=== PATIENT | male | born 1960 | race Caucasian/White ===

== ENCOUNTER 2020-07-04 15:20 | Outpatient (REF) | payer BC, SELFPAY ==
[2020-07-04 14:06] LABS: Abs Immature Grans 0.01 10^3/uL (0.0-0.06); Absolute Basophil Count 0.04 10^3/uL (0.0-0.2); Absolute Eosinophil Count 0.41 10^3/uL (0.0-0.7); Absolute Lymphocyte Count 1.52 10^3/uL (1.2-3.4); Absolute Monocyte Count 0.59 10^3/uL (0.1-0.8); Absolute Neutrophil Count 2.87 10^3/uL (1.2-6.7); Basophils % 0.7; Eosinophils % 7.5; HCT 46.1 % (40.0-50.0); HGB 15.8 g/dL (13.5-17.5); Immature Grans % 0.2; Lymphocytes % 27.9; MCH 32.8 pg (27.0-33.0); MCHC 34.3 % (32.0-36.0); MCV 95.6 fL (80-95); MPV 10.8 fL (8.0-11.0); Monocytes % 10.8; Neutrophils % 52.9; Nucleated RBC 0 %; Platelet Count 266 10^3/uL (130-400); RBC 4.82 10^6/uL (4.36-5.78); RDW-SD 42.3 fL; WBC 5.44 10^3/uL (4.4-10.8)
[2020-07-04 14:30] LABS: ALT 103 U/L (16-63); AST 49 U/L (15-37); Albumin 4.2 g/dL (3.4-5.0); Alkaline Phosphatase 75 U/L (46-116); Anion Gap 11.3 mmol/L (3-11); BUN 15 mg/dL (7-18); Bilirubin, Total 0.6 mg/dL (0.2-1.0); CO2 25.7 mmol/L (21.0-32.0); Calcium 9.6 mg/dL (8.5-10.1); Calculated LDL 81 mg/dL (<100); Chloride 102 mmol/L (98-107); Cholesterol 163 mg/dL (<200); Glucose 89 mg/dL (74-106); HDL Cholesterol 69 mg/dL (40-60); Potassium 4.5 mmol/L (3.5-5.1); Sodium 139 mmol/L (136-145); Triglyceride 65 mg/dL (<150)
[2020-07-05 10:46] LABS: Hepatitis A Antibody IgM Negative (Negative); Hepatitis B Core Antibody Positive (Negative); Hepatitis B surface Ag Negative (Negative); Hepatitis C Ab w Rflx HCV PCR Reactive (Negative)
[2020-07-08 12:33] LABS: HBc IgM Ab, S Negative (Negative)
[2020-07-08 13:57] LABS: HCV RNA Qualitative Detected (Undetected)
== END 2020-07-04 15:21 | disposition home or self-care (01) ==
LOC: NCHCN 15:20
PROVIDERS: Visit Provider Nurse Practitioner Family
DX: B19.20 Unspecified viral hepatitis C without hepatic coma (principal); R20.2 Paresthesia of skin; F17.210 Nicotine dependence, cigarettes, uncomplicated; B00.89 Other herpesviral infection; Z86.59 Personal history of other mental and behavioral disorders; Z13.220 Encounter for screening for lipoid disorders
CPT/HCPCS: 80053; 80061; 86704; 86709; 86803; 87340; 87522; 85025; 86705

== ENCOUNTER 2021-01-06 12:11 | Outpatient (REF) | payer BC, SELFPAY ==
[2021-01-06 21:23] LABS: HCT 45.3 % (40.0-50.0); HGB 15.1 g/dL (13.5-17.5); MCH 32.2 pg (27.0-33.0); MCHC 33.3 % (32.0-36.0); MCV 96.6 fL (80-95); MPV 10.5 fL (8.0-11.0); Platelet Count 260 10^3/uL (130-400); RBC 4.69 10^6/uL (4.36-5.78); RDW 12.2 % (11.8-14.1); RDW-SD 43.8 fL; WBC 5.09 10^3/uL (4.4-10.8)
[2021-01-06 21:34] LABS: ALT 25 U/L (16-63); AST 16 U/L (15-37); Albumin 4.2 g/dL (3.4-5.0); Alkaline Phosphatase 95 U/L (46-116); Anion Gap 8.1 mmol/L (3-11); BUN 18 mg/dL (7-18); Bilirubin, Total 0.5 mg/dL (0.2-1.0); CO2 29.9 mmol/L (21.0-32.0); Calcium 9.5 mg/dL (8.5-10.1); Chloride 102 mmol/L (98-107); Glucose 152 mg/dL (74-106); Potassium 4.9 mmol/L (3.5-5.1); Sodium 140 mmol/L (136-145); Total Protein 7.8 g/dL (6.4-8.2)
[2021-01-07 01:57] LABS: COVID-19 RT-PCR UVMMC Result Negative (Negative)
[2021-01-08 09:55] LABS: Hepatitis B Surface Ag Negative (Negative)
[2021-01-08 14:00] LABS: HCV RNA Qualitative Undetected (Undetected)
== END 2021-01-06 12:12 | disposition home or self-care (01) ==
LOC: NCHCN 12:11
PROVIDERS: PCP Nurse Practitioner Family; Visit Provider Nurse Practitioner Family
DX: Z20.822 Contact with and (suspected) exposure to COVID-19 (principal); B19.20 Unspecified viral hepatitis C without hepatic coma
CPT/HCPCS: 80053; 85027; 87340; 87522; U0003

== ENCOUNTER 2021-03-03 09:47 | Outpatient (REF) | payer BC, SELFPAY ==
[2021-03-03 16:46] LABS: ALT 26 U/L (16-63); AST 19 U/L (15-37); Albumin 4.4 g/dL (3.4-5.0); Alkaline Phosphatase 83 U/L (46-116); Anion Gap 9.8 mmol/L (3-11); BUN 18 mg/dL (7-18); Bilirubin, Total 0.6 mg/dL (0.2-1.0); CO2 30.2 mmol/L (21.0-32.0); CREATININE 1.1 mg/dL (0.70-1.30); Calcium 9.6 mg/dL (8.5-10.1); Chloride 101 mmol/L (98-107); Glucose 79 mg/dL (74-106); Sodium 141 mmol/L (136-145); Total Protein 8.1 g/dL (6.4-8.2)
[2021-03-05 15:36] LABS: Hepatitis B Surface Ag Negative (Negative)
== END 2021-03-03 09:48 | disposition home or self-care (01) ==
LOC: NCHCN 09:47
PROVIDERS: PCP Nurse Practitioner Family; Visit Provider Family Medicine
DX: B19.20 Unspecified viral hepatitis C without hepatic coma (principal); M75.81 Other shoulder lesions, right shoulder
CPT/HCPCS: 80053; 87340

== ENCOUNTER 2021-03-05 02:47 | Outpatient (CLI) | payer BC, SELFPAY ==
[2021-03-05 10:10] LABS: Source Nasal/Nares
[2021-03-05 16:46] LABS: COVID-19 PCR Negative (Negative)
== END 2021-03-05 02:48 | disposition home or self-care (01) ==
LOC: LBO 02:47
PROVIDERS: PCP Nurse Practitioner Family; Visit Provider Surgery
DX: Z20.822 Contact with and (suspected) exposure to COVID-19 (principal); Z01.818 Encounter for other preprocedural examination
CPT/HCPCS: 87635

== ENCOUNTER 2021-03-07 06:12 | Day surgery (SDC) | payer BC, SELFPAY ==
--- NOTE | 2021-03-06 22:58 | PDOC.DSDIS_ITS ---
Discharge Plan Disposition Patient Disposition: HOME Condition: Good Discharge Details Reason For Visit: colon scope Attending Provider: Nena Akhtar Primary Care Provider: Vicky Diaz Home Meds and New Rx's Prescriptions: Continued valacyclovir 1 gram tablet 1,000 mg PO BID RF: 0 Discontinued polyethylene glycol 3350 17 gram/dose powder 238 g PO ONCE Qty: 238 RF: 0 bisacodyl [Dulcolax (bisacodyl)] 5 mg tablet,delayed release (DR/EC) 5 mg PO ONCE Qty: 4 RF: 0 Discharge Instructions Additional Instructions: DSU Colonoscopy Post- Op Instructions Instructions for Everyone who is given Anesthesia: For your safety, please do the following for the next twenty-four (24) hours: *Do Not operate a motor vehicle (car, truck, motorcycle, etc.) *Do Not drink alcoholic beverages or use any recreational drugs for the first 24 hours or while taking pain medications. The medications in your body may have a reaction that can be dangerous. *Do Not make any important decisions or sign any important papers. Findings: ext hemorhoids diverticula Follow up: repeat CE in 10 yrs time 1. No lifting over 20 pounds or strenuous activity for the first 24 hours after your procedure. After 24 hours there are no restrictions on your activity but you may feel fatigued for a few days. 2. After you arrive home you may have a light meal and return to your normal diet as you can tolerate it without feeling sick to your stomach. 3. You may have a bloated, gaseous feeling in your belly (abdomen) after a colonoscopy. Passing gas and belching will help. Walking or lying down on your left side with your knees flexed may relieve the discomfort. Call the office at [phone] (Office) or [phone] (Hospital) right away if you notice any of the following: a.Vomiting of blood or ?coffee ground stools?. b.Rectal bleeding 1Tbsp, blood clots or continuous bleeding. c.Severe belly (abdominal) pain. d.A hard distended belly (abdomen) and an inability to pass gas. 4. Please don?t expect to have a normal BM (bowel movement) for 2-3 days after your procedure. 5. If there are questions regarding the findings of your procedure, please contact your doctor 6. If you are unable to contact your doctor with a problem, contact the [facility] at [phone]. 7. Continue all your regular medications unless directed otherwise. I understand the above instructions and have no questions. Signature of Patient or Adult Escort Name of Responsible Adult Escort Signature of Nurse Date/Time Activity:: see above Diet:: see above Discharge Orders Discharge Orders: Discharge Order (Routine); Ordered 03/06/21 Ordered By: Nena Akhtar DS: Diagnosis Discharge Diagnosis (1) History of smoking: Status: Acute (2) Family history of polyps in the colon: Status: Acute (3) Diverticula of colon: Status: Acute (4) External hemorrhoid: Status: Acute
--- NOTE | 2021-03-06 22:59 | COLE_ITS ---
Colonoscopy Report Date of procedure: 03/07/21 Pre-op diagnosis general: famly hx of polyps Surgeon: Nena Akhtar Anesthesia Type: General:No Airway Disposition: same day Prep: Miralax/Dulcolax Procedure Description: After informed consent was obtained the patient was taken to the procedure room and placed in a left decubitous position. Monitors were applied and a time out was done. The patients name, date of , procedure, allergies to medications and metal in their body was reviewed. The patient was then sedated. Once sedated and comfortable a rectal exam was done. Mildly infla med external hemorrhoids internal exam revealed a normal sphincter tone and no palpable masses. The prostate: No masses detected today The scope was then introduced and retrofelexed. no internal hemorrhoids were identified. The scope was then advanced to the cecum without difficulty. The TI and appendiceal orifice were identified. The prep was adequate. The scope was then slowly retracted over 7 minutes back into the rectum. he has a few small scattered diverticula throughout the entire colon. No signs of bleeding or infection. No polyps were identified today. The mucosa appears pink and healthy. Polyps were removed none The scope was removed and the patient was woken up and taken back to Same day surgery in stable condition. The patient tolerated the procedure well and there were no immediate complications. Follow up: The patient should follow up in 5 Years unless they develop changes in bowel habits or other new gastrointestinal complaints.
--- NOTE | 2021-03-07 06:08 | W.ANESPRE ---
General Info Date of Service Date Performed: 03/07/21 Height: 5 ft 11 in Weight: 95.708 kg Body Mass Index (BMI): 29.4 Surgical Procedure: Operation Date: 03/07/21 07:35 Proposed Procedures Side Surgeon p Colonoscopy Nena Akhtar DO Meds Allergies and Home Medications Allergies Allergy/AdvReac Type Severity Reaction Status Date / Time No Known Allergies Allergy Verified 03/07/21 06:32 Home Medication Medication Instructions Recorded valacyclovir 1 gram tablet 1,000 mg PO BID 02/26/21 Current Visit Medications: Current Medications Generic Name Dose Route Start Last Admin Trade Name Freq PRN Reason Stop Dose Admin Hyoscyamine Sulfate 0.125 mg 03/06/21 22:57 Hyoscyamine 0.125 Mg Sl/Oral/Chew SL DIRECTED PRN Ringer's Solution 1,000 mls @ 80 mls/hr 03/07/21 06:00 IV 03/25/21 23:59 INFUSION CARMINA IV Miscellaneous Supplies 1 each 03/07/21 06:00 Iv Access IV 03/25/21 23:59 DIRECTED CARMINA Sodium Chloride 0 ml 03/07/21 06:00 Normal Saline Flush 10 Ml Syr IV 03/25/21 23:59 PRN PRN Sodium Chloride 0 ml 03/07/21 06:00 Normal Saline 10 Ml Vial IJ 03/25/21 23:59 DIRECTED PRN Sterile Water 0 ml 03/07/21 06:00 Water,Injection,Sterile 10 Ml Vial IJ 03/25/21 23:59 DIRECTED PRN PFSH Active Problems Active Problems: Problem Status Onset Code History of substance abuse F19.11 History of smoking Z87.891 Family history of polyps in the colon Z83.71 Medical History Medical History (Updated 03/06/21 @ 23:00 by Nena Akhtar DO) Current every day smoker Genital herpes Hepatitis C Pt. stated he has been recieving treatment for it History of substance abuse heroin, cocaine per pt. states 25-30 years ago Inguinal hernia left Oral herpes simplex, not currently active Paresthesia of foot SCC (squamous cell carcinoma) Surgical History Surgical History (Updated 03/07/21 @ 06:32 by Lissett Torres RN) History of wisdom tooth extraction Hx of hand surgery L into wrist tendon repair Tobacco Smoking/Tobacco Use Status: Never Alcohol Alcohol Intake: current Alcohol intake frequency: a few times a month Substance Use Substance use: Current Sobriety Substance use type: former substance user Vital Signs and Lab Results Vital Signs Most Recent Vital Signs in EMR: Temp Pulse Resp BP Pulse Ox 36.1 C L 69 16 116/83 98 03/07/21 06:19 03/07/21 06:19 03/07/21 06:19 03/07/21 06:19 03/07/21 06:19 Lab Results Blood Type / Crossmatch: No Data to Display Complete Blood Count: No Data to Display Complete Metabolic Panel: Sodium Level 141 mmol/L (136-145) 03/03/21 08:35 03/03/21 Potassium Level 5.0 mmol/L (3.5-5.1) 03/03/21 08:35 03/03/21 Chloride Level 101 mmol/L (98-107) 03/03/21 08:35 03/03/21 Carbon Dioxide Level 30.2 mmol/L (21.0-32.0) 03/03/21 08:35 03/03/21 Blood Urea Nitrogen 18 mg/dL (7-18) 03/03/21 08:35 03/03/21 Creatinine 1.1 mg/dL (0.70-1.30) 03/03/21 08:35 03/03/21 Estimated GFR/1.73 m2 >= 60.00 (mL/min/1.73m2) 03/03/21 08:35 03/03/21 Calcium Level 9.6 mg/dL (8.5-10.1) 03/03/21 08:35 03/03/21 Albumin 4.4 g/dL (3.4-5.0) 03/03/21 08:35 03/03/21 Glucose Level 79 mg/dL (74-106) 03/03/21 08:35 03/03/21 Liver Function Panel: Alanine Aminotransferase (ALT/SGPT) 26 U/L (16-63) 03/03/21 08:35 03/03/21 Aspartate Amino Transf (AST/SGOT) 19 U/L (15-37) 03/03/21 08:35 03/03/21 Coagulation Panel: No Data to Display Cardiac Panel: No Data to Display Arterial Blood Gas: No Data to Display Venous Blood Gas: No Data to Display Pancreas Panel: No Data to Display Thyroid Panel: No Data to Display Infectious Disease: Coronavirus (COVID-19)(PCR) Negative (Negative) 03/05/21 09:36 03/05/21 Coronavirus 2019 Source Nasal/Nares 03/05/21 09:36 03/05/21 Hepatitis B Surface Antigen Negative (Negative) 03/03/21 08:35 03/03/21 Blood Cultures: No Data to Display Toxicology Panel: No Data to Display Anesthesia Assessment and Plan Anesthesia History Personal History: No History of Anesthesia Complications Family History: No Family History of Anesthesia Complications Exercise Tolerance Exercise Tolerance: Metabolic Equivalents>4 Cardiac & Pulmonary Exam Cardiac Exam: Normal S1/S2 Heart Sounds Pulmonary Exam: Clear Bilateral Breath Sounds Implantable Cardiac Device Does patient have a Pacemaker or an ICD?: No Airway Exam Known Difficult Airway: No Mallampati Class: 2 Mouth Opening: Normal (> 3cm) Thyromental Distance: Less than 3 cm Neck Range of Motion: Full ROM Neck Circumference: Normal Teeth Condition: Normal Dentition ASA Classification ASA Score: ASA 2 Emergency Case?: No NPO Status NPO Status: NPO Clears >2 hours, Solids >8 hours Anesthesia Plan Resuscitation Status: Full Code Anesthesia Technique: General Anesthesia Airway Planned: Natural Airway Monitors Used: Standard Monitors Preoperative Comments:: 60 yo male with family history of polyps here for colonoscopy. Sig PMHx: former substance abuse, hep c (has completed treatment), former smoker.
[2021-03-07 06:19] VITALS: BP 116/83; PULSE 69; RESP 16; TEMP 36.1; O2SAT 98
[2021-03-07] MEDS: Lactated Ringers 1,000 ML 80 ML IV (06:58)
[2021-03-07 07:17] VITALS: BMI 29.4
[2021-03-07 07:59] VITALS: BP 116/96; PULSE 63; RESP 16; TEMP 36.9; O2SAT 97
[2021-03-07 08:23] VITALS: BP 120/81; PULSE 58; RESP 15; TEMP 36.5; O2SAT 98
--- NOTE | 2021-03-07 08:44 | W.ANESPOSTOP ---
Postoperative Evaluation Date, Time and Location Date Performed: 03/07/21 Time Performed: 08:44 Patient Location: Day Surgery Unit Vital Signs Most Recent Imported Vital Signs: Most Recent Vital Signs Temp Pulse Resp BP Pulse Ox 36.5 C 58 L 15 120/81 98 03/07/21 08:23 03/07/21 08:23 03/07/21 08:23 03/07/21 08:23 03/07/21 08:23 Pain Score Most Recent Pain Score: Most Recent Pain Score Pain Level 0 03/07/21 08:23 Assessment Mental Status: Awake (Alert & Oriented to Patient Baseline) Airway and Respiratory Function: Patent airway with normal (patient baseline) respiratory exam Cardiovascular Function: Hemodynamically Stable Hydration Status: Adequately Hydrated Nausea & Vomiting: No Nausea or Vomiting Pain: Pt. Denies Any Pain Peripheral Nerve Block: Patient did not receive a nerve block
== END 2021-03-07 09:15 | disposition home or self-care (01) ==
PROVIDERS: PCP Nurse Practitioner Family; Visit Provider Surgery
PROC: 0DJD8ZZ Inspection of Lower Intestinal Tract, Via Natural or Artificial Opening Endoscopic (ICD-10-PCS; CPT 45378; principal; 2021-03-07 07:30)
DX: Z12.11 Encounter for screening for malignant neoplasm of colon (principal); Z83.71 Family history of colonic polyps
CPT/HCPCS: 45378

== ENCOUNTER 2021-06-19 01:08 | Outpatient (CLI) | payer BC, SELFPAY ==
--- NOTE | 2021-06-19 07:45 | DI.MRI_ITS ---
Exam(s) MR UPPER JOINT RT WO EXAM: MR UPPER JOINT RT WO CLINICAL HISTORY: TENDINITIS OF RT SHOULDER, M75.81 TECHNIQUE: Multiplanar multisequence MRI of the shoulder was performed. COMPARISON: No plain films of the shoulder available time this MRI interpretation. FINDINGS: MARROW:There is no evidence of fracture, Hill-Sachs deformity, nor ominous osseous lesions. ROTATOR CUFF MECHANISM: AC JOINT/ACROMIUM: Moderate degenerative changes in the AC joint. Degenerative cyst noted on the cla vicular side of the joint. Increased signal within the joint space. No prominent downgoing osteophy reymundo. No impingement hook on the undersurface of the acromion.. There is no evidence of os acromiale. Supraspinatus: There is a full-thickness tear of the supraspinatus tendon., leaving a prominent gap m easuring 1.5 cm AP. Infraspinatus: Appears intact. No atrophy. Teres Minor: Intact. No evidence of tear nor muscle atrophy. Subscapularis/anterior cuff: Exhibits tendinitis signal just anterior to the lesser tuberosity. Degroot thuy, no high-grade tear. BICEPS TENDON: Exhibits normal position within the intertubercular groove. No tear nor prominent tenosynovitis LABRUM: No evidence of abnormal SLAP-type signal in the superior labrum posterior to the biceps inser tion site. Also no evidence of tear in the posterior labrum and inferior labrum. However, there is tearing in the anterior labrum evident. No paralabral cyst. There is no evidence of bony Bankart lesion. No periosteal stripping evident. The inferior glenohum eral ligament appears intact. GLENOHUMERAL JOINT: There is a moderate joint effusion which is in continuity with the subacromial sp en through the full-thickness tear in the supraspinatus. There are no obvious loose intra-articular bodies. There are no degenerative subarticular cysts in the osseous glenoid. There few small degen erative subarticular cysts evident in the posterolateral aspect of the humeral head. There are no os teophytes. No prominent cartilage loss/chondral defects. QUADRILATERAL SPACE: No evidence of mass in the region of the axillary nerve and dorsal circumflex hu meral vessels. Visualized triceps muscle at this level appears unremarkable. IMPRESSION: 1. There is a full-thickness tear of the rotator cuff-supraspinatus tendon, as described above. Ther e is a moderate-sized joint effusion with fluid continuity through the full-thickness tear into the s ubacromial space. No prominent atrophy. 2. There is tear of the anterior labrum. No evidence of SLAP-type superior labral tear. No evidence of biceps tendon tear nor displacement. 3. Moderate degenerative changes in the AC joint. Minimal degenerative changes in the glenohumeral joint. No osteophytes. DATA REPOSITORY:
== END 2021-06-19 01:28 ==
PROVIDERS: PCP Nurse Practitioner Family; Visit Provider Nurse Practitioner Family
DX: M25.511 Pain in right shoulder (principal); M75.81 Other shoulder lesions, right shoulder; M75.101 Unspecified rotator cuff tear or rupture of right shoulder, not specified as traumatic; M25.411 Effusion, right shoulder; M19.011 Primary osteoarthritis, right shoulder; S43.431A Superior glenoid labrum lesion of right shoulder, initial encounter
CPT/HCPCS: 73221

== ENCOUNTER 2021-08-19 09:27 | Outpatient (CLI) | payer BC, SELFPAY ==
--- NOTE | 2021-08-19 08:15 | DI.RAD_ITS ---
Exam(s) XR SHOULDER RT COMPLETE 2+V EXAM: XR SHOULDER RT COMPLETE 2+V CLINICAL HISTORY: right shoulder pain. TECHNIQUE: 2D digital imaging was performed of the right shoulder. Two images were obtained. AP an d axillary views were obtained. COMPARISON: No exams were available for comparison FINDINGS: BONES: No acute fracture is present. No bony destructive lesion is seen. JOINTS: No dislocation present. Mild degenerative changes are seen at the acromioclavicular joint. SOFT TISSUE: Normal. IMPRESSION: Mild degenerative changes of the AC joint. DATA REPOSITORY: RADIATION DOSE DELIVERED:
== END 2021-08-19 09:28 | disposition home or self-care (01) ==
LOC: DIORS 09:27
PROVIDERS: PCP Nurse Practitioner Family; Referring Provider Nurse Practitioner Family; Visit Provider Student in an Organized Health Care Education/Training Program
DX: M25.511 Pain in right shoulder (principal); M19.011 Primary osteoarthritis, right shoulder
CPT/HCPCS: 73030

== ENCOUNTER 2023-03-11 11:38 | Outpatient (REF) | payer BC, SELFPAY ==
[2023-03-11 14:35] LABS: ALT 24 U/L (16-63); AST 21 U/L (15-37); Albumin 4.3 g/dL (3.4-5.0); Alkaline Phosphatase 65 U/L (46-116); Anion Gap 8.1 mmol/L (3-11); BUN 16 mg/dL (7-18); Bilirubin, Total 0.6 mg/dL (0.2-1.0); CO2 27.9 mmol/L (21.0-32.0); CREATININE 1.1 mg/dL (0.70-1.30); Calcium 9.7 mg/dL (8.5-10.1); Chloride 103 mmol/L (98-107); Estimated GFR 74.96 (mL/min/1.73m2); Glucose 86 mg/dL (74-106); Potassium 4.8 mmol/L (3.5-5.1); Sodium 139 mmol/L (136-145); Total Protein 7.7 g/dL (6.4-8.2)
[2023-03-15 12:16] LABS: HCV RNA Qualitative Undetected (Undetected)
== END 2023-03-11 11:39 | disposition home or self-care (01) ==
LOC: NCHCN 11:38
PROVIDERS: PCP Nurse Practitioner Family; Visit Provider Family Medicine
DX: Z86.19 Personal history of other infectious and parasitic diseases (principal)
CPT/HCPCS: 80053; 87522

== ENCOUNTER 2024-01-20 16:12 | Outpatient (REF) | payer BC, SELFPAY ==
[2024-01-20 15:36] LABS: Abs Immature Grans 0.02 10^3/uL (0.0-0.06); Absolute Basophil Count 0.04 10^3/uL (0.0-0.2); Absolute Eosinophil Count 0.19 10^3/uL (0.0-0.7); Absolute Monocyte Count 0.51 10^3/uL (0.1-0.8); Absolute Neutrophil Count 2.11 10^3/uL (1.2-6.7); Basophils % 0.9 %; Eosinophils % 4.3 %; HCT 42.5 % (40.0-50.0); HGB 14.5 g/dL (13.5-17.5); Immature Grans % 0.4 %; Lymphocytes % 35.8 %; MCHC 34.1 % (32.0-36.0); MCV 97 fL (80-95); MPV 10.6 fL (8.0-11.0); Monocytes % 11.4 %; Neutrophils % 47.2 %; Platelet Count 284 10^3/uL (130-400); RDW 12.2 % (11.8-14.1); RDW-SD 43.5 fL; WBC 4.47 10^3/uL (4.4-10.8)
--- OUTSIDE RECORDS SUMMARY | 2024-01-20 16:19 | XMS_ITS | Encounter Summary ---
[place] [address] Care Team Providers Care Picking Crew Supervisor Name Role Phone Vicky Diaz APRN Primary Care Provider [phone] Reason for Visit * Consultation (Routine) - Closed Specialty Diagnoses / Procedures Referred By Jun sanabria Referred To Contact Gastroenterology Diagnoses Hepatitis C Liver- Hep C Vicky Diaz APRN [address] [place] [address] [facility] [place] [address] [address] Referral ID Status Reason Start Date Expiration Date V isits Requested Visits Authorized [id number] Closed Consult, Test & Treat Connection Center PCP Updated and/or Approved 07/04/2020 07/04/2021 6 6 Encounter Details Date Type Department Care Team (Late st Contact Info) Description 10/01/2020 2:00 PM EDT Office [place] [phone] Ag Wilson PA [address] [place] [address] [place] [address] Chronic hepatitis C without hepatic coma (Primary Dx); Hepatitis B core antibody positive Social History Tobacco Use Types Packs/Day Years Used Date Smoking Tobacco: Every Day Smokeless Tobacco: Never Comments:3-4 a day Sex and Gender Information Value Date Recorded Sex Assigned at Not on file Gender Identity Not on file Sexual Orientation Not on file documented as of this encounter Last Filed Vital Signs Vital Sign Reading Time Taken Comments Blood Pressure 119/73 10/01/2020 1:56 PM EDT Pulse 65 10/01/2020 1:56 PM EDT Temperature - - Respiratory Rate - - Oxygen Saturation - - Inhaled Oxygen Concentration - - Weight 92.2 kg (203 lb 4.8 oz) 10/01/2020 1:56 P M EDT Height 182.9 cm (6') 10/01/2020 1:56 PM EDT Body Mass Index 27.57 10/01/2020 1:56 PM EDT documented in this encounter Progress Notes * Corrine Alvares LNA - 10/01/2020 2:00 PM EDT * Ag Wilson PA - 10/01/2020 2:00 PM EDT Images from the original note were not included. HEPATOLOGY NEW PATIENT CONSULTATION Patient: Markus Gentile Sex: male Date of : 1960 FELLED SEAM OPERATOR: Ag Wilson PA-C PCP: Vicky Diaz APRN Requesting Provider: Vicky Diaz 10/01/20 REASON FOR CONSULTATION: Hepatitis C PROBLEM LIST Patient Active Problem List Diagnosis Code ??? History of skin cancer Z85.828 ??? Left inguinal hernia K40.90 ??? Cigarette smoker F17.210 ??? History of substance abuse F19.11 ??? Chronic hepatitis C without hepatic coma B18.2 ??? Oral herpes simplex infection B00.2 HISTORY OF PRESENT ILLNESS Markus Gentile is a 60 y.o. male referred to hepatology clinic for evaluation of hepatitis C. He states that he first learned of his infection about 20 years ago when he had a life insurance policy physical examination with blood work and was told that he was declined because of his hep C infection, which he had no knowledge of at the time. This was confirmed with 3 testing through his primary care office at that time. He then met with a GI doctor who said it would be in his best interestnot to be treated and to wait. He believes he is completely asymptomatic and has not ever had any concerning symptoms that he thinks would be related to his infection. He believes he very likely acquired his infection through intravenous drug abuse in the past, when he was using cocaine and heroin in his 20s. He has not used illicit drugs in more than 10 years. He gets random drug tests periodically through his work and so he generally avoids all drugs now. He does admit however that he drinks alcohol regularly when he is not working. He works 6 weeks straight in [place] and then returns home to [place] for 6 weeks. For the 6 weeks in [place], he does notdrink at all, though when he is home he states that he often will have a couple of beers on hot days and 1 to 2 glasses of wine with dinner most days. Sometimes he drinks heavier than this socially or on weekends. He does admit that he certainly drank heavier when he was younger as well. He has never had any problems with withdrawals or DTs. He has been hung over in the past however and he has had a few overnights in longterm because of his alcohol use in the past. REVIEW OF SYSTEMS General: Denies weight loss, fatigue, poor sleep, fever, chills, night sweats Skin: Denies new rashes, easy bruising, jaundice EENT: Denies blurred vision or change in vision, hearing loss, sinus problems, dry eyes or mouth Endocrine: Denies change in tolerance to heat or cold, excessive thirst Cardiovascular: Denies chest pain, palpitations or irregular heart beat, pain in legs with walking,swelling in feet Pulmonary: Denies SOB, persistent cough, coughing up blood, asthma or wheezing Gastrointestinal: Denies poor appetite, abdominal pain, indigestion, trouble swallowing, diarrhea, constipation, nausea/vomitting, rectal bleeding or blood in stools Musculoskeletal: Denies pain in joints, back pain, neck or shoulder pain, muscle cramping, movementof legs at night Neurologic: Denies blackouts or loss of consciousness, headache, weakness or numbness in legs or arms, tremor, worsening memory and concentration Genitourinary: Denies frequent urination, blood in urine Psychiatric: Denies changes in mood or behavior, anxiety MEDICATIONS Current Outpatient Medications Medication Sig Dispense Refill ??? valACYclovir (Valtrex) 500 mg Tablet Take 500 mg by mouth as needed. ??? zolpidem (Ambien) 5 mg Tablet Take 5 mg by mouth as needed. ??? multivitamin (THERAGRAN) Tablet Take 1 tablet by mouth daily. No current facility-administered medications for this visit. ALLERGIES No Known Allergies SOCIAL HISTORY Occupation: Works on [employer] in [place]; former professional fisherman Marital status: , previously Smokin-4 cigarettes daily Alcohol: See HPI Other drug: None Hepatitis C Risk Factors: IV drugs? Yes, used cocaine/heroin in early 20s, 3-4 years total, last used age 23 Intranasal drugs? Yes, cocaine, last used 10+ years ago Tattoos? None service? None Blood transfusions? None Close contact/relationship with known hepatitis? None FAMILY HISTORY Negative except as noted below Medical problem Family member Medical Problem Family member Medical Problem Family member Alcohol drug Problem Kidney disease Mental illness Anemia or Blood Disease Liver disease Depression Diabetes Liver cancer Seizure High blood pressure Stroke Lung disease ?sister Heart disease Clotting problems Colon Cancer High cholesterol Immune disorders Other Cancer PHYSICAL EXAM Vitals: 10/01/20 1356 BP: 119/73 BP Location ([facility]): Left arm Patient Position: Sitting BP Cuff Sizes: Large Adult (32-43 cm) Pulse: 65 Weight: 92.2 kg (203 lb 4.8 oz) Height: 182.9 cm (6') Body mass index is 27.57 kg/m??. Constitutional: Well appearing, appropriate, no acute distress Skin: No cyanosis, no palmar erythema, no jaundice, no spider angiomata Head: Normocephalic, sclerae anicteric CVS: Not assessed Lungs: Not assessed Abdomen: Nontender, nondistended, no hepatosplenomegaly, no masses, no fluid wave, no umbilical hernia, no caput medussae Neurologic: Alert and oriented x 3, no asterixis or tremor Extremities: No edema, no clubbing, no muscle wasting, no joint swelling RESULTS Recent Results (from the past 24 hour(s)) Hemogram Result Value Ref Range WBC 5.6 4.0 - 9.5 x10(3)/mcL RBC 4.61 4.58 - 5.54 x10(6)/mcL Hemoglobin 15.0 13.7 - 16.5 gm/dL Hematocrit 44.0 40.5 - 48.5 % MCV 95.4 (H) 82.9 - 93.1 fL MCH 32.5 (H) 27.5 - 32.1 pg MCHC 34.1 32.0 - 35.7 gm/dL Platelets 215 145 - 357 x10(3)/mcL RDWSD 42.5 36.0 - 45.0 fL RDWCV 12.1 11.4 - 13.8 % MPV 10.1 7.6 - 12.9 fL nRBC % Auto 0.0 % nRBC Abs Auto 0.000 0.000 - 0.000 x10(3)/mcL Differential, Automated Result Value Ref Range Neutrophils % 50.4 % Neutr Abs (ANC) 2.82 1 - 6 x10(3)/mcL Lymphocytes % 35.6 % Lymphocytes Abs 2.0 0.9 - 3.2 x10(3)/mcL Monocytes % 7.5 % Monocyte Abs 0.4 0.3 - 0.9 x10(3)/mcL Eosinophils % 5.4 % Eosinophils Abs 0.3 0.0 - 0.4 x10(3)/mcL Basophils % 0.9 % Basophils Abs 0.0 0.0 - 0.1 x10(3)/mcL Immature Gran % 0.20 % Zuleima Gran Abs 0.01 0.00 - 0.04 x10(3)/mcL Non-DH Laboratory: 07/04/20 @ [facility]: Imaging: Ultrasound 07/19/20 @ [facility]: Fibroscan Results Today: Median kPa: 5.9 Mean IQR: 10% (goal is <30 %) Number of valid measurements: 10 (10 required) Number of invalid measurements: 0 Predicted fibrosis stage: F0-F1 CAP (dB/m): 191 ASSESSMENT/PLAN Markus Gentile is a 60 y.o. male with presumed chronic hepatitis C infection, unknown genotype, viral load of 347,752 IU/mL this past June. He was first diagnosed approximately 20 years ago and has not had any obvious risks or exposures in more than 10 years since being clean from illicit drug use, so it is presumed that he has chronic infection. Risk factors for viral acquisition include intravenous and intranasal drug abuse many years ago. He also has a reported history of heavier alcoholuse in the past, and does regularly drink when he has not at work in [place]. Fortunately, recent abdominal ultrasound was entirely negative and FibroScan today is very reassuring suggesting no signifi cant fibrosis or steatosis. He shows no concerning signs or symptoms of advanced chronic liver disease on exam or history. His labs from June show moderately elevated transaminases but otherwise normal liver function. I think that given his stability and lack of symptoms, now is the most appropriate time to treat him. He seems very much interested and invested in treating now. This patient is a candidate to begin direct-acting antiviral therapy now. We would like to treat the patient's chronic infection in order to prevent progression of any preexisting liver damage, and decrease risk of developing other chronic diseases such as diabetes,. We discussed the importance of a bstinence from all drug and alcohol use, especially during treatment, as well as adherence to treatment regimen, once approved, with regular lab work, phone calls with nursing staff, and follow-up appointments post-treatment. We will need some updated pretreatment labs today including HIV screen and additional hepatitis A and B titers. He had a positive HBV core antibody which is likely related to prior exposure. Because of this, he will need HBV surface antigen testing during treatment because of the rare risk of reactivation while on direct acting antiviral therapy. Treatment allocation and laboratory testing may be tricky to coordinate given his work schedule, though if we fill through the Specialty Pharmacy I am confident in our ability to make this work for him. Plan: -Await remaining lab results. -When all results return, submit prior authorization for antiviral therapy. Given that he is na??veto treatment, noncirrhotic, and asymptomatic, we will likely treat him with a simplified treatment algorithm with Mavyret for duration of 8 weeks. -He will need laboratory testing at 4 weeks, end of treatment, and 12 weeks posttreatment includingCMP and HBsAg. -Counseled on drug and alcohol avoidance especially during treatment. -If treatment course is uneventful, he misses no doses, and no side effects, he may not need additional hepatology follow-up if a sustained virologic response is achieved. Time spent reviewing records prior to this encounter: 7 minutes Time spent during encounter with patient including counselin minutes Time spent documenting encounter on date of service: 16 minutes Approximate total time devoted to this single encounter on date of service: 78 minutes This is exclusive of the time spent performing the Fibroscan procedure. Ag Wilson PA-C Section of Gastroenterology [place] [address] Copy: Vicky McleanellJOLENE Vicky H Joe documented in this encounter Procedure Notes * Ag Wilson PA - 10/01/2020 2:00 PM EDTAssociated Order(s): FIBROSCAN Procedure(s): FIBROSCAN Pre-Procedure Diagnose(s): Chronic hepatitis C without hepatic coma [facility] Liver Fibrosis Assessment Report Indication: Hepatitis C Performed by: FRANK Granados Procedure: Vibration Controlled Transient Elastography (VCTE) or Fibroscan [place] Protocol: Patient's identity, procedure and site were verified, confirmatory pause performed. Discussed procedure including risks and potential complications. Questions answered. Patient verbalizes understanding and wishes to proceed with Fibroscan assessment. Patient was placed in the supine position with right arm in maximum abduction to allow optimal exposure of right lateral abdomen. Patient was briefly assessed. Testing was performed in the mid-axillary location. 50Hz Shear Wave pulses were applied and the resulting Shear Wave and Propagation Speed was detected with a 3.5MHz ultrasonic signal, using the Fibroscan probe. Skin to liver capsule distance and liver parenchyma were accessed during the entire examination with the Fibroscan probe. Patient was instructed to breathe normally and abstain from sudden movements during the procedure. At least ten Sheer Waves were produced; individual measurements of each Shear Wave were calculated. Patient tolerated the procedure well with no complications. Fibroscan Results: Median kPa: 5.9 Mean IQR: 10% (goal is <30 %) Number of valid measurements: 10 (10 required) Number of invalid measurements: 0 Predicted fibrosis stage: F0-F1 CAP (dB/m): 191 Estimated steatosis grade: 0-1/3 % hepatocytes affected: < 33% Interpretation: Based on this Fibroscan result, history, clinical examination and review of laboratory and radiological data, this patient likely has stage 0-1 liver fibrosis and grade 0-1 steatosis affecting less than 33% of hepatocytes. documented in this encounter Plan of Treatment Upcoming Encounters Date Type Department Care Team (Late st Contact Info) Description 03/09/2024 10:00 AM EST Office Visit Dermatology at [place] [address] [place] [address] Dom Beebe MD [address], [place] [address] documented as of this encounter Goals Goal Patient Goal Type Associated Problems Recent Progress Patient-Stated? Author DH Home Medication Compliance and Understanding Patient Facing Action Plan Mansi Stephen, [facility] Note: To achieve SVR as definied by undetectable plasma HCV RNA at least twelve weeks after end of treatment documented as of this encounter Procedures Procedure Name Priority Date/Time Associated Diagnosis Comments HEMOGRAM Routine 10/01/2020 4:09 PM EDT Chronic hepatitis C without hepatic coma DIFFERENTIAL, AUTOMATED Routine 10/02/19 4:09 PM EDT Chronic hepatitis C without hepatic coma HC HEPATITIS A, TOTAL Routine 10/01/2020 4:09 PM EDT Chronic hepatitis C without hepatic coma HC HCV GENOTYPING Routine 10/01/2020 4:0 9 PM EDT Chronic hepatitis C without hepatic coma HC HCV QUANTIFICATION Routine 10/01/2020 4:09 PM EDT Chronic hepatitis C without hepatic coma HC HIV SCREEN, 4TH GENERATION Routine 10/01/2020 4:09 PM EDT Chronic hepatitis C without hepatic coma HC HEPATITIS B SURFACE AB Routine 10/01/2020 4:09 PM EDT Chronic hepatitis C without hepatic coma HC CBC,PLT & AUTO DIFF Routine 4:09 PM EDT Chronic hepatitis C without hepatic coma COMPREHENSIVE METABOLIC PANEL Routine 10/01/2020 4:09 PM EDT Chronic hepatitis C without hepatic coma [id number] Routine 10/01/2020 2:00 PM EDT Chronic hepatitis C without hepatic coma documented in this encounter Results * Differential, Automated (10/01/2020 4:09 PM EDT) Pathologist [facility] Neutrophil % 50.4 % [facility] Neutrophil Absolute 2.82 1.70 - 6.10 x10(3)/[facility] Lymph % 35.6 % [facility] Lymphocytes Abs 2.0 0.9 - 3.2 x10(3)/[facility] Monocyte % 7.5 % [facility] Monocyte Abs 0.4 0.3 - 0.9 x10(3)/[facility] Eos % 5.4 % [facility] Eosinophils Abs 0.3 0.0 - 0.4 x10(3)/[facility] Basophil % 0.9 % [facility] Baso Absolute 0.0 0.0 - 0.1 x10(3)/[facility] Immature Gran % 0.20 % [facility] Comment: Immature granulocytes(IG's)percentage and absolute count will include metamyelocytes, myelocytes, and promyelocytes. Blood smears from CBCs yielding IG's will be scanned manually for concordance. If this scan disagrees with the automated IG or if promyelocytes are noted, a manual differential will be performed. Immature Gran Absolute 0.01 0.00 - 0.04 x10(3)/[facility] Blood 10/01/2020 4:09 PM EDT 10/01/2020 4:31 PM EDT Narrative Resulting Agency Comment Spec In Lab Ag MARIE HEMATOLOGY ORDERABLE S [facility] [place] [address] * (ABNORMAL) Hemogram (10/01/2020 4:09 PM EDT) Pathologist [facility] White Blood Cell 5.6 4.0 - 9.5 x10(3)/[facility]ORAT[facility] Red Blood Cell 4.61 4.58 - 5.54 x10(6)/ L [facility] Hemoglobin 15.0 13.7 - 16.5 gm/dL [facility] Hematocrit 44.0 40.5 - 48.5 % [facility] Mean Cell Volume 95.4(H) 82.9 - 93.1 fL [facility] Mean Cell Hemoglobin 32.5(H) 27.5 - 32.1 pg [facility] Mean Cell Hemoglobin Concentration 34.1 32.0 - 35.7 gm/dL [facility] Platelet 215 145 - 357 x10(3)/[facility] LAB[facility]AT[facility] RDW Standard Deviation 42.5 36.0 - 45.0 [facility] RDW coefficient of variation 12.1 11.4 - 13.8 % [facility] Mean Platelet Volume 10.1 7.6 - 12.9 [facility] NRBC% auto 0.0 % [facility] NRBC Absolute 0.000 0.000 - 0.000 x10(3)/[facility] Blood 10/01/2020 4:09 PM EDT 10/01/2020 4:31 PM EDT Narrative Resulting Agency Comment Spec In Lab Ag MARIE HEMATOLOGY ORDERABLE S [facility] [place] [address] * HIV Screen, 4th Generation (MC/CGP/APD/NLH) (10/01/2020 4:09 PM EDT) HIV Ab/Ag Screen Negative Negative [facility] Comment: This 4th Generation HIV test screens for the presence of the HIV-1 p24 antigen as well as antibodies reactive against HIV-1 and HIV-2. A negative screen does not rule out an acute HIV infection. If acute HIV infection is suspected, testing should be repeated in 2 - 3 weeks or HIV nucleic acid testing performed. Blood 10/01/2020 4:09 PM EDT 10/01/2020 4:31 PM EDT Narrative Resulting Agency Comment Spec In Lab Agueda Busch MD CHEMISTRY ORDERABLES Performing Organization Address City/[facility]/ZIP Co de Phone Number [facility] [place] [address] * Hepatitis A Antibody, Total (10/01/2020 4:09 PM EDT) Hepatitis A ANTIBODY, TOTAL Negative Negative [facility] Blood 10/01/2020 4:09 PM EDT 10/01/2020 4:31 PM EDT Narrative Resulting Agency Comment Spec In Lab Agueda Busch MD CHEMISTRY ORDERABLES Performing Organization Address [facility] Co de Phone Number [facility] [place] [address] * Hepatitis B Surface Antibody (10/01/2020 4:09 PM EDT) Hepatitis B Surface Antibody, Quantitative 52.2 IU/L [facility] Comment: HepB Surface Ab Quant: Unvaccinated: < 8.5 IU/L Vaccinated: > 11.5 IU/L Hepatitis B Surface Antibody Positive [facility] Comment: Patient is considered to be immune to HBV infection. Expected Results: Vaccinated: Positive Unvaccinated: Negative Blood 10/01/2020 4:09 PM EDT 10/01/2020 4:31 PM EDT Narrative Resulting Agency Comment Spec In Lab Agueda Busch MD CHEMISTRY ORDERABLES Performing Organization Address City/[facility] Co de Phone Number [facility] [place] [address] * Hepatitis C genotype (10/01/2020 4:09 PM EDT) HCV Genotype Indication for study Hepatitis C Infection Result 1b Interpretation: The genotyping analysis has identified the presence of hepatitis C virus (HCV) genotype 1b in the submitted specimen. Response to some antiviral therapies is genotype dependent. Please refer to current practice guidelines and pharmaceutical product inserts for specific recommendations on treating this particular HCV genotype. Method: The HCV genotyping was carried out using [employer] e[employer]ensor?? HCVg Direct Test. Briefly, nucleic acid isolated from plasma is subjected to a multiplexed reverse transcriptase PCR followed by a direct analysis on the electrochemical [employer]ential[employer] XT-8 detection system for the identification of HCV genotypes. The HCV genotypes/subtypes detected by this method include 1a, 1b, 2a/c, 2b, 3, 4, 5 and 6. Disclaimer: This test was developed and its performance characteristics determined by the [facility] [employer] [facility] [employer] [facility] at [facility]. It has not been cleared or approved by the FDA. The laboratory is regulated under CLIA as qualified to perform high-complexity testing. This test is used for clinical purposes. It should not be regarded as investigational or for research. [facility] Comment: [VERIFIED DATE]10.16.20 Verified By:Lyly Sanchez (Electronic Signature) Corrected on 10/16/20 13:47:41 EDT by Lyly Sanchez. Please contact the lab or refer to previously-reported data. Blood 10/01/2020 4:09 PM EDT 10/02/2020 7:20 AM EDT Narrative Resulting Agency Comment Spec In Lab Agueda Busch MD MOLECULAR ORDERABLES [facility] [place] [address] * Hepatitis C RNA, quantitative, PCR (10/01/2020 4:09 PM EDT) HCV Viral Load 324,162 IU/mL [facility] HCV Viral Load Result: [id number] IU/mL Indication for Study: Hepatitis C Infection Analysis: The [employer] RealTime HCV assay is an in vitro reverse press department manager polymerase chain reaction (RT-PCR)for the quantitation of hepatitis C viral (HCV) RNA in human serum or plasma (EDTA) from HCV-infected individuals. Sample: plasma (0.7 mL minimum volume) Method: [employer] RealTime HCV Assay Linear Range: 12 IU/mL - 100,000,000IU/mL Note: The [employer] RealTime HCV Assay has been approved by the U.S. Food and Drug Administration. [facility] Comment: [VERIFIED DATE]10.03.20 Verified By:Mala Winston (Electronic Signature) Blood 10/01/2020 4:09 PM EDT 10/02/2020 7:20 AM EDT Narrative Resulting Agency Comment Spec In Lab Agueda Busch MD MOLECULAR ORDERABLES [facility] [place] [address] * (ABNORMAL) Comprehensive metabolic panel (non-fasting) (10/01/2020 4:09 PM EDT) Glucose 89 65 - 199 mg/dL [facility] Comment:Diabetes: >=200 mg/d L plus symptoms Blood Urea Nitrogen 14 10 - 20 mg/dL [facility] Creatinine 0.85 0.80 - 1.50 mg/dL [facility] Sodium 140 135 - 145 mmol/L [facility] Potassium 4.1 3.5 - 5.0 mmol/L [facility] Comment: Please note: ??Patients with WBC >100,000 may have falsely elevated Potassium levels. ??For accurate Potassium quantification in these patients send serum separator tube (gold top) for subsequent determinations. ??Contact the Clinical Chemistry Laboratory if there are any questions. Chloride 102 98 - 107 mmol/L [facility] Carbon Dioxide 26 22 - 31 mmol/L [facility] Anion Gap 12 5 - 15 mmol/L [facility] Calcium 9.4 8.5 - 10.5 mg/dL [facility] Protein, Total 7.6 6.1 - 8.0 gm/dL [facility] Albumin 4.6 3.2 - 5.2 gm/dL [facility] [facility] Aspartate Aminotransferase 48(H) 0 - 39 unit/L [facility] Alanine Aminotransferase 62(H) 0 - 55 unit/L [facility] Alkaline Phosphatase 71 40 - 130 unit/L [facility] Bilirubin, Total 0.4 0.2 - 1.3 mg/dL [facility] Est Glomerular Filtration Rate 93 >=60 mL/min/1. 73 m?? [facility] Comment: This patient? s estimated glomerular filtration rate (eGFR) is between 93 mL/min/1.73 m2 (patients with less muscle mass per kg body weight) and 108 mL/min/1.73 m2 (patients with more muscle mass per kg body weight) as determined by the CKD-EPI equation. Assessment of eGFR is not appropriate when creatinine concentrations are rapidly changing. For clinical decisions where creatinine clearance will affect therapy, a 24-hour urine creatinine clearance may be advised. Assignment of CKD stage 1 - 5 for patients with an eGFR near the transition point between stages may be based on clinical assessment of muscle mass and symptoms in addition to eGFR. Blood 10/01/2020 4:09 PM EDT 10/01/2020 4:31 PM EDT Narrative Resulting Agency Comment Spec In Lab Agueda Busch MD CHEMISTRY ORDERABLES [facility] [address] [id number] * [id number] (10/01/2020 2:00 PM EDT) Narrative Ag Wilson PA - 10/01/2020 2:00 PM EDT Ag Wilson PA ? 10/01/2020 ??5:30 PM [facility] Liver Fibrosis Assessment Report Indication: ?? Hepatitis C Performed by: ??FRANK Granados Procedure: Vibration Controlled Transient Elastography (VCTE) or Fibroscan [place] Protocol: Patient's identity, procedure and site were verified, confirmatory pause performed. Discussed procedure including risks and potential complications. Questions answered. Patient verbalizes understanding and wishes to proceed with Fibroscan assessment. Patient was placed in the supine position with right arm in maximum abduction to allow optimal exposure of right lateral abdomen. Patient was briefly assessed. Testing was performed in the mid-axillary location. 50Hz Shear Wave pulses were applied and the resulting Shear Wave and Propagation Speed was detected with a 3.5MHz ultrasonic signal, using the Fibroscan probe. Skin to liver capsule distance and liver parenchyma were accessed during the entire examination with the Fibroscan probe. Patient was instructed to breathe normally and abstain from sudden movements during the procedure. At least ten Sheer Waves were produced; individual measurements of each Shear Wave were calculated. Patient tolerated the procedure well with no complications. Fibroscan Results: Median kPa: 5.9 Mean IQR: 10% (goal is <30 %) Number of valid measurements: 10 (10 required) Number of invalid measurements: 0 Predicted fibrosis stage: F0-F1 CAP (dB/m): 191 Estimated steatosis grade: 0-1/3 % hepatocytes affected: < 33% Interpretation: Based on this Fibroscan result, history, clinical examination and review of laboratory and radiological data, this patient likely has stage 0-1 liver fibrosis and grade 0-1 steatosis affecting less than 33% of hepatocytes. Agueda Busch MD PROCEDURE/MINOR SURG ICAL ORDERABLES documented in this encounter Visit Diagnoses Diagnosis Chronic hepatitis C without hepatic coma- Primary Hepatitis B core antibody positive Other and unspecified nonspecific immunological findings documented in this encounter Care Teams Picking Crew Supervisor Relationship Specialty Start Date End Date Vicky Diaz APRN [address] [place] [address] PCP - General Family Medicine 07/28/20 documented as of this encounter
--- OUTSIDE RECORDS SUMMARY | 2024-01-20 16:19 | XMS_ITS | Encounter Summary ---
[place] [address] Care Team Providers Care Hogshead Press Operator Name Role Phone Vicky Diaz JOLENE Primary Care Provider [phone] Reason for Visit * Reason Onset Date Comments Hepatitis C 10/25/2020 Encounter Details Date Type Department Care Team (Late st Contact Info) Description 10/25/2020 Tele[place] [phone] Maribel Macdonald, RN Hepatitis C Social History Tobacco Use Types Packs/Day Years Used Date Smoking Tobacco: Every Day Smokeless Tobacco: Never Comments:3-4 a day Sex and Gender Information Value Date Recorded Sex Assigned at Not on file Gender Identity Not on file Sexual Orientation Not on file documented as of this encounter Miscellaneous Notes * Telephone Encounter - Maribel Macdonald RN - 10/25/2020 11:04 AM EDT Received vmm from [facility]. Spoke with ricky Akers. Relayed below clinical information and advised regarding patient's 6 week alternating work schedule in [place]. Oswald states he will discuss timing of start date to accommodate required lab work and refills with the patient and will request patient stay in regular contact with our office. GT 2b VL 134,162 IU/mL on 10/01/20 F0-F1 on Fibroscan HBcAb positive - will need to check HBsAg during treatment monthly. HIV neg Tx-naive documented in this encounter Plan of Treatment Upcoming Encounters Date Type Department Care Team (Late st Contact Info) Description 03/09/2024 10:00 AM EST Office Visit Dermatology at [place] [address] [place] [phone] Dom Beebe MD [address], [place] [address] documented as of this encounter Goals Goal Patient Goal Type Associated Problems Recent Progress Patient-Stated? Author DH Home Medication Compliance and Understanding Patient Facing Action Plan Mansi Stephen, [facility] Note: To achieve SVR as definied by undetectable plasma HCV RNA at least twelve weeks after end of treatment documented as of this encounter Visit Diagnoses Not on filedocumented in this encounter Care Teams Hogshead Press Operator Relationship Specialty Start Date End Date Vicky Diaz APRN [address] [place] [address] PCP - General Family Medicine 07/28/20 documented as of this encounter
--- OUTSIDE RECORDS SUMMARY | 2024-01-20 16:19 | XMS_ITS | Encounter Summary ---
Author Organization [facility] [place] [address] Care Team Providers Care Siding Coreboard Inspector Name Role Phone Vicky Diaz APRN Primary Care Provider [phone] Encounter Details Date Type Department Care Team (Late Contact Info) Description 02/06/2021 Telephone [place] [phone] Ag Wilson PA [address] [place] [address] [place] [address] Social History Tobacco Use Types Packs/Day Years Used Date Smoking Tobacco: Every Day Smokeless Tobacco: Never Comments:3-4 a day Sex and Gender Information Value Date Recorded Sex Assigned at Not on file Gender Identity Not on file Sexual Orientation Not on file documented as of this encounter Miscellaneous Notes * Telephone Encounter - Ag Wilson PA - 02/06/2021 9:45 AM EDT LVM to review labs from last month at [facility]. Let him know that all looks good, did not leave details. Will send letter with results. Advised to repeat labs again at end of treatment. DG documented in this encounter Plan of Treatment Upcoming Encounters Date Type Department Care Team (Late Contact Info) Description 03/09/2024 10:00 AM EST Office Visit Dermatology at [address] [address] Dom Beebe MD [address], [place] [address] documented as of this encounter Goals Goal Patient Goal Type Associated Problems Recent Progress Patient-Stated? Author DH Home Medication Compliance and Understanding Patient Facing Action Plan Mansi Stephen, [facility] Note: To achieve SVR as definied by undetectable plasma HCV RNA at least twelve weeks after end of treatment documented as of this encounter Visit Diagnoses Not on filedocumented in this encounter Care Teams Siding Coreboard Inspector Relationship Specialty Start Date End Date Vicky Diaz APRN [address] [place] [address] PCP - General Family Medicine 07/28/20 documented as of this encounter
--- OUTSIDE RECORDS SUMMARY | 2024-01-20 16:19 | XMS_ITS | Encounter Summary ---
Author Organization [place] [address] Care Team Providers Care Experimental Aircraft Mechanic Name Role Phone Vicky Diaz JOLENE Primary Care Provider [phone] Reason for Visit * Reason Comments Annual Exam Encounter Details Date Type Department Care Team (Late st Contact Info) Description 03/08/2023 10:30 AM EST Office Visit Dermatology at [address] [address] Dom Beebe MD [address] [facility], [place] [address] History of SCC (squamous cell carcinoma) of skin; AK (actinic keratosis); Nevus Social History Tobacco Use Types Packs/Day Years Used Date Smoking Tobacco: Every Day Smokeless Tobacco: Never Comments:3-4 a day Sex and Gender Information Value Date Recorded Sex Assigned at Not on file Gender Identity Not on file Sexual Orientation Not on file documented as of this encounter Progress Notes * Dom Beebe MD - 03/08/2023 10:30 AM EST Problem: 1. Annual skin checkup 2. History of SCCA's dorsal forearms treatment 2013 3. History of suspected malignant melanoma left dorsal foot 4. 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 Physical examination reveals a pleasant 62-year-old gentleman who has mild diffuse actinic damage of the temples and forehead and cheeks. 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 There is no evidence of any cutaneous malignancies. Examination of the chest and back the hands arms forearms thighs and calves and the buttocks is otherwise benign. Assessment plan: Mild diffuse actinic damage facial 1. Begin 5-fluorouracil 5% cream apply on a once nightly basis for 1 week on then stop for 3 weeks.Repeat for total of 3 cycles. Dispense 40 g with 0 refills. This will be called into his [facility] in History of SCCA's dorsal forearms 1. No evidence of recurrence 2. Patient reassured about the remainder of his benign skin examination 3. Return to clinic in a year for repeat check. CC: Vicky Diaz APRN documented in this encounter Plan of Treatment Upcoming Encounters Date Type Department Care Team (Late st Contact Info) Description 03/09/2024 10:00 AM EST Office Visit Dermatology at [place] [address] [place] [address] Dom Beebe MD [address], [place] [address] documented as of this encounter Goals Goal Patient Goal Type Associated Problems Recent Progress Patient-Stated? Author DH Home Medication Compliance and Understanding Patient Facing Action Plan Mansi Stephen, [facility] Note: To achieve SVR as definied by undetectable plasma HCV RNA at least twelve weeks after end of treatment documented as of this encounter Visit Diagnoses Diagnosis History of SCC (squamous cell carcinoma) of skin Personal history of other malignant neoplasm of skin AK (actinic keratosis) Actinic keratosis Nevus Benign neoplasm of skin, site unspecified documented in this encounter Care Teams Experimental Aircraft Mechanic Relationship Specialty Start Date End Date Vicky Diaz APRN [address] [place] [address] PCP - General Family Medicine 07/28/20 documented as of this encounter
--- OUTSIDE RECORDS SUMMARY | 2024-01-20 16:19 | XMS_ITS | Encounter Summary ---
Author Organization [facility] [place] [address] Care Team Providers Care Fill Plant Operator Name Role Phone Vicky Diaz JOLENE Primary Care Provider [phone] Encounter Details Date Type Department Care Team (Late st Contact Info) Description 10/14/2020 Refill [place] [address] Ag Wilson PA [address] [place] [address] [place] [address] Social History Tobacco Use Types Packs/Day Years Used Date Smoking Tobacco: Every Day Smokeless Tobacco: Never Comments:3-4 a day Sex and Gender Information Value Date Recorded Sex Assigned at Not on file Gender Identity Not on file Sexual Orientation Not on file documented as of this encounter Plan of Treatment Upcoming Encounters Date Type Department Care Team (Late st Contact Info) Description 03/09/2024 10:00 AM EST Office Visit Dermatology at [place] [address] [place] [address] Dom Beebe MD [address] [facility], [place] [address] documented as of this encounter Goals Goal Patient Goal Type Associated Problems Recent Progress Patient-Stated? Author [facility] Medication Compliance and Understanding Patient Facing Action Plan No Mansi Sapp, [facility] Note: To achieve SVR as definied by undetectable plasma HCV RNA at least twelve weeks after end of treatment documented as of this encounter Visit Diagnoses Not on filedocumented in this encounter Care Teams Fill Plant Operator Relationship Specialty Start Date End Date Vicky Diaz APRN [address] [place] [address] PCP - General Family Medicine 07/28/20 documented as of this encounter
--- OUTSIDE RECORDS SUMMARY | 2024-01-20 16:19 | XMS_ITS | Encounter Summary ---
Author Organization [facility] [place] [address] Care Team Providers Care Microbiology Supervisor Name Role Phone Vicky Diaz JOLENE Primary Care Provider [phone] [phone] Encounter Details Date Type Department Care Team (Late st Contact Info) Description 10/24/2020 Refill [place] [address] Ag Wilson PA [address] [place] [address] [place] [address] Social History Tobacco Use Types Packs/Day Years [...] 10:00 AM EST Office Visit Dermatology at [place] [address] [place] [phone] Dom Beebe MD [address] [facility], [place] [address] documented as of this encounter Goals Goal Patient Goal Type Associated Problems Recent Progress Patient-Stated? Author [facility] Medication Compliance and Understanding Patient Facing Action Plan No Mansi Sapp, [facility] Note: To achieve SVR as definied by undetectable plasma HCV RNA at least twelve weeks after end of treatment documented as of this encounter Visit Diagnoses Not on filedocumented in this encounter Care Teams Microbiology Supervisor Relationship Specialty Start Date End Date Vicky Diaz APRN [address] [place] [address] PCP - General Family Medicine 07/28/20 documented as of this encounter
--- OUTSIDE RECORDS SUMMARY | 2024-01-20 16:19 | XMS_ITS | Encounter Summary ---
Author Organization [facility] [place] [address] Care Team Providers Care Cardiovascular Specialist Name Role Phone JoeMadeleine hewitthrsherin Fortune JOLENE Primary Care Provider [phone] [phone] Reason for Visit * Reason Onset Date Comments Hepatitis C 12/27/2020 Encounter Details Date Type Department Care Team (Late st Contact Info) Description 12/27/2020 Telephone [place] [address] Maribel Macdonald, RN Hepatitis C Social History Tobacco Use Types Packs/Day Years Used Date Smoking Tobacco: Every Day Smokeless Tobacco: Never Comments:3-4 a day Sex and Gender Information Value Date Recorded Sex Assigned at Not on file Gender Identity Not on file Sexual Orientation Not on file documented as of this encounter Miscellaneous Notes * Telephone Encounter - Maribel Macdonald RN - 12/27/2020 10:26 AM EDT Received call from Diamond Vivas with PCP's office at [facility]. Mr. Gentile is temporarily back from [place] and will be finishing week four of his HCV treatment on01/04. He plans to have labs drawn on 01/06. Faxed labs to [facility] per Diamond's request. Also advised it may be quicker to get results if patient has drawn here at (if that's an option). She will discuss with patient. Diamond can be reached at , extension [phone]. documented in this encounter Plan of Treatment Upcoming Encounters Date Type Department Care Team (Late st Contact Info) Description 03/09/2024 10:00 AM EST Office Visit Dermatology at [place] [address] [place] [address] Dom Beebe MD [address], [place] [address] documented as of this encounter Goals Goal Patient Goal Type Associated Problems Recent Progress Patient-Stated? Author Home Medication Compliance and Understanding Patient Facing Action Plan No Mansi Sapp, [facility] Note: To achieve SVR as definied by undetectable plasma HCV RNA at least twelve weeks after end of treatment documented as of this encounter Visit Diagnoses Diagnosis Chronic hepatitis C without hepatic coma Hepatitis B core antibody positive Other and unspecified nonspecific immunological findings documented in this encounter Care Teams Cardiovascular Specialist Relationship Specialty Start Date End Date Vicky Diaz APRN [address] [place] [address] PCP - General Family Medicine 07/28/20 documented as of this encounter
--- OUTSIDE RECORDS SUMMARY | 2024-01-20 16:19 | XMS_ITS | Encounter Summary ---
[place] [address] Care Team Providers Care Cut To Length Operator Name Role Phone Vicky Diaz APRN Primary Care Provider [phone] [phone] Reason for Visit * Reason Comments Prior Authorization Mavyret 100-40mg tab lets Encounter Details Date Type Department Care Team (Late st Contact Info) Description 10/16/2020 Specialty Pharmacy [place] [address] Vicky Douglas, [facility] Social History Tobacco Use Types Packs/Day Years Used Date Smoking Tobacco: Every Day Smokeless Tobacco: Never Comments:3-4 a day Sex and Gender Information Value Date Recorded Sex Assigned at Not on file Gender Identity Not on file Sexual Orientation Not on file documented as of this encounter Progress Notes * Vicky Douglas - 10/16/2020 4:22 PM EDT [facility], Medication Prior Authorization Patient: Markus Gentile Patient : 1960 Patient Address: [address] [place] [address] (home) Medication Name: MAVYRET 100 MG-40 MG TABLET Medication ID: [id number] Patient Location: [facility] 4L Patient Location Comment: Subscriber Insurance: Subscriber Insurance Comment: [employer] Fax: N/A Physician: SALINA MOMIN Physician Comment: Sent Via: [facility] Mcallister: [id number] Ref/Case/PA#: N/A Medication Strength Frequency Requested: Take 3 tablets by mouth daily Qty/Day Supply: New Start: New to Therapy Diagnosis & ICD-10 Code: Chronic hepatitis C without hepatic coma, B18.2 Patient Notified: No Submission Notes: None Christie Douglas 10/16/20 4:36 PM * Blanca Herrera - 10/16/2020 4:22 PM EDT [facility], Prior Authorization Approval Medication Name: MAVYRET 100 MG-40 MG TABLET Medication ID: [id number] Approval Dates: 10/23/2020 to 12/18/2020 Insurance requirements/notes: Must fill through [facility] Other Notes: None Case/Reference #: [id number] Approval notification Received via: Fax Copay: Unknown, patient unable to fill with Copay assistance: None Copay Notes: Insurance mandated Pharmacy: Fillable at [facility] Specialty Pharmacy: No Pharmacy staff will be reaching out to the patient to inform them of their medication's [facility]. If applicable, a pharmacist will speak with the patient to offer our specialty pharmacy services and to arrange delivery of their medication. Blanca Herrera 10/24/20 12:27 PM documented in this encounter Plan of Treatment Upcoming Encounters Date Type Department Care Team (Late st Contact Info) Description 03/09/2024 10:00 AM EST Office Visit Dermatology at [place] [address] [facility] [facility] [place] [address] Dom Beebe MD [address] [facility], [place] [address] documented as of this encounter Goals Goal Patient Goal Type Associated Problems Recent Progress Patient-Stated? Author DH Home Medication Compliance and Understanding Patient Facing Action Plan Mansi Stephen, [facility] Note: To achieve SVR as definied by undetectable plasma HCV RNA at least twelve weeks after end of treatment documented as of this encounter Visit Diagnoses Not on filedocumented in this encounter Care Teams Cut To Length Operator Relationship Specialty Start Date End Date Vicky Diaz, JOLENE [address] [place] [address] PCP - General Family Medicine 07/28/20 documented as of this encounter
--- OUTSIDE RECORDS SUMMARY | 2024-01-20 16:19 | XMS_ITS | Encounter Summary ---
Author Organization [facility] [place] [address] Care Team Providers Care Liquor Tester Name Role Phone Vicky Diaz APRN Primary Care Provider [phone] Encounter Details Date Type Department Care Team (Late st Contact Info) Description 03/08/2023 Refill Dermatology at [address] [address] Jacqui Black RN Social History Tobacco Use Types Packs/Day Years [...] 10:00 AM EST Office Visit Dermatology at [address] [address] Dom Beebe MD [address] [place] [address], [facility] [place] [address] documented as of this encounter Goals Goal Patient Goal Type Associated Problems Recent Progress Patient-Stated? Author [facility] Medication Compliance and Understanding Patient Facing Action Plan Mansi Stephen, [facility] Note: To achieve SVR as definied by undetectable plasma HCV RNA at least twelve weeks after end of treatment documented as of this encounter Visit Diagnoses Not on filedocumented in this encounter Care Teams Liquor Tester Relationship Specialty Start Date End Date Vicky Diaz APRN [address] [place] [address] PCP - General Family Medicine 07/28/20 documented as of this encounter
--- OUTSIDE RECORDS SUMMARY | 2024-01-20 16:19 | XMS_ITS | Encounter Summary ---
Author Organization [facility] Address [address] [place] [address] Care Team Providers Care House Mover Helper Name Role Phone Unavailable Primary Care Provider Unavailabl e Encounter Details Date Type Department Care Team (Late st Contact Info) Description 01/07/2021 Lab Requisition [facility] Pathology & Laboratory Medicine - [facility] [address] [place] [address] Outr Resulting Lab, Provider Social History Tobacco Use Types Packs/Day Years Used Date Smoking Tobacco: Never Assessed Interpersonal Safety Answer Date Record ed Physically Hurt Never 07/05/2020 Verbally Threaten Not on file 07/05/2020 Sex and Gender Information Value Date Recorded Sex Assigned at Not on file Gender Identity Not on file Sexual Orientation Not on file documented as of this encounter Plan of Treatment Not on file documented as of this encounter Procedures Procedure Name Priority Date/Time Associated Diagnosis Comments HCV RNA DETECT QUANT Routine 01/06/2021 11:20 EDT HEPATITIS B SURFACE ANTIGEN Routine 01/06/2021 11:20 EDT documented in this encounter Results * HCV RNA DETECT QUANT (01/06/2021 11:20 EDT) HCV RNA Qualitative Undetected Undetected 01/08/2021 13:55 EDT [facility] Blood VENOUS BLOOD / Unknown 01/06/2021 11:20 EDT 01/07/2021 15:45 EDT Narrative [facility] - 01/08/2021 13:55 EDT New platform in use 11/18/2020 The quantification range of this assay is 15 IU/mL to 100,000,000 IU/mL. Testing was performed using the Misa HCV test ([employer] with the misa [id number] System. Provider Outr Resulting Lab CHEMISTRY & BLOOD GAS ORDERABLES Performing Organization Address City/Va Hospital/ZIP Co de Phone Number [facility] [address] [place] [address] * HEPATITIS B SURFACE ANTIGEN (01/06/2021 11:20 EDT) Hep B Surface Ag Negative Negative 01/08/2021 9:51 EDT [facility] Blood VENOUS BLOOD / Unknown 01/06/2021 11:20 EDT 01/07/2021 15:45 EDT Provider Outr Resulting Lab CHEMISTRY & BLOOD GAS ORDERABLES Performing Organization Address [facility]/Va Hospital/[facility] Co de Phone Number [facility] [address] [place] [address] documented in this encounter Visit Diagnoses Not on filedocumented in this encounter
--- OUTSIDE RECORDS SUMMARY | 2024-01-20 16:19 | XMS_ITS | Encounter Summary ---
Author Organization [facility] Address [address] [place] [address] Care Team Providers Care Manager Respiratory Care Name Role Phone Unavailable Primary Care Provider Unavailabl e Encounter Details Date Type Department Care Team (Late st Contact Info) Description 03/12/2023 Lab Requisition [facility] Pathology & Laboratory Medicine - [facility] [address] [place] [address] Outr Resulting Lab, Provider Social History Tobacco [...] Diagnosis Comments HCV RNA DETECT QUANT Routine 03/11/2023 9:20 EST documented in this encounter Results * HCV RNA DETECT QUANT (03/11/2023 9:20 EST) HCV RNA Qualitative Undetected Undetected 03/15/2023 12:13 EST [facility] Blood VENOUS BLOOD / Unknown 03/11/2023 9:20 EST 03/12/2023 17:25 EST Narrative [facility] - 03/15/2023 12:13 EST The quantification range of this assay is 15 IU/mL to 100,000,000 IU/mL. Testing was performed using the Amanda HCV test ([employer] with the amanda [id number] System. Provider Outr Resulting Lab CHEMISTRY & BLOOD GAS ORDERABLES [facility] [address] [place] [address] documented in this encounter Visit Diagnoses Not on filedocumented in this encounter
--- OUTSIDE RECORDS SUMMARY | 2024-01-20 16:19 | XMS_ITS | Clinical Summary ---
Author Organization [facility] Address [address] [place] [address] Care Team Providers Care Terminal Gauger Name Role Phone Unavailable Primary Care Provider Unavailabl e Social History Tobacco Use Types Packs/Day Years Used Date Smoking Tobacco: Never Assessed Interpersonal Safety Answer Date Record ed Physically Hurt Never 07/05/2020 Verbally Threaten Not on file 07/05/2020 Sex and Gender Information Value Date Recorded Sex Assigned at Not on file Gender Identity Not on file Sexual Orientation Not on file Plan of Treatment Health Maintenance Due Date Last Done Comments RSV Immunization ( o r 60+ Years) (1 - 1-dose 60+ series) 2018 COVID-19 Vaccine (2022-24 season) 2022 Fall Risk Screening 2023 Hepatitis C Screen Completed 03/11/2023, 0 01/06/2021, 07/04/2020 Procedures Procedure Name Priority Date/Time Associated Diagnosis Comments HCV RNA DETECT QUANT Routine 03/11/2023 9:20 EST from Last 3 Months or Most Recently Relevant to Health Maintenance Results * HCV RNA DETECT QUANT (03/11/2023 9:20 EST) HCV RNA Qualitative Undetected Undetected 03/15/2023 12:13 EST [facility] Blood VENOUS BLOOD / Unknown 03/11/2023 9:20 EST 03/12/2023 17:25 EST Narrative [facility] - 03/15/2023 12:13 EST The quantification range of this assay is 15 IU/mL to 100,000,000 IU/mL. Testing was performed using the Misa HCV test ([employer] with the mias [id number] System. Provider Outr Resulting Lab CHEMISTRY & BLOOD GAS ORDERABLES [facility] [address] [place] [address] from Last 3 Months or Most Recently Relevant to Health Maintenance
--- OUTSIDE RECORDS SUMMARY | 2024-01-20 16:19 | XMS_ITS | Encounter Summary ---
Author Organization [facility] Address [address] [place] [address] Care Team Providers Care Database Programmer Analyst Name Role Phone Unavailable Primary Care Provider Unavailabl e Encounter Details Date Type Department Care Team (Late st Contact Info) Description 03/04/2021 Lab Requisition [facility] Pathology & Laboratory Medicine - [facility] [address] [id number] Outr Resulting Lab, Provider Social History Tobacco [...] Procedure Name Priority Date/Time Associated Diagnosis Comments HEPATITIS B SURFACE ANTIGEN Routine 03/03/2021 8:35 EST documented in this encounter Results * HEPATITIS B SURFACE ANTIGEN (03/03/2021 8:35 EST) Hep B Surface Ag Negative Negative 03/05/2021 15:30 EST [facility] Blood VENOUS BLOOD / Unknown 03/03/2021 8:35 EST 03/04/2021 16:44 EST Provider Outr Resulting Lab CHEMISTRY & BLOOD GAS ORDERABLES [facility] [address] [place] [address] documented in this encounter Visit Diagnoses Not on filedocumented in this encounter
--- OUTSIDE RECORDS SUMMARY | 2024-01-20 16:19 | XMS_ITS | Clinical Summary ---
Author Organization [facility] [address] Care Team Providers Care Pcmh Specialist Name Role Phone Vicky Diaz APRN Primary Care Provider [phone] Allergies No known active allergies Medications Medication Sig Dispensed Refills Start Date End Date Status valACYclovir (VALTREX) 1 gram Tablet TAKE ONE TABLET BY MOUTH TWICE A DAY FOR 7 DAYS 07/24/2020 Active fluorouraciL (EFUDEX) 5 % Cream Apply thin layer topically to affected areas on a once nightly basis for 1 week on then stop for 3 weeks. Repeat for a total of 3 cycles. 40 g 03/08/2023 Active Active Problems Problem Noted Date Diagnosed Date History of skin cancer 10/01/2020 Left inguinal hernia 10/01/2020 Cigarette smoker 10/01/2020 History of substance abuse 10/01/2020 Chronic hepatitis C without hepatic coma 021 Oral herpes simplex infection 10/01/2020 Hepatitis B core antibody positive 10/01/2020 Social History Tobacco Use Types Packs/Day Years Used Date Smoking Tobacco: Every Day Smokeless Tobacco: Never Comments:3-4 a day Sex and Gender Information Value Date Recorded Sex Assigned at Not on file Gender Identity Not on file Sexual Orientation Not on file Last Filed Vital Signs Vital Sign Reading [...] Mass Index 27.57 10/01/2020 1:56 PM EDT Plan of Treatment Upcoming Encounters Date Type Department Care Team (Late st Contact Info) Description 03/09/2024 10:00 AM EST Office Visit Dermatology at [place] [address] [place] [address] Dom Beebe MD [address], [place] [address] Health Maintenance Due Date Last Done Comments CT Colonography 1960 Colonoscopy 1960 Colorectal Cancer Screening 1960 FIT DNA 1960 FIT 1960 Sigmoidoscopy (10 year) with FIT yearly 1960 Sigmoidoscopy 1960 Pneumoccocal Vaccine: 65+ (1 of 2 - PCV) 1964 Lipid Screening 1976 Tetanus/Diphtheria/Pertussis Vaccines (1 - Tdap) 04/10 Zoster vaccine (1 of 2) 2008 Advance Directive 2013 Covid-19 Vaccine (1 - season) 2023 Influenza (Flu) vaccine (1 o f 1 - Influenza standard series) 12/26/2023 Diabetes Screening (HgbA1C or Glucose) Discontinued HIV screen Completed 10/01/2020 Goals Goal Patient Goal Type Associated Problems Recent Progress Patient-Stated? Author [facility] Medication Compliance and Understanding Patient Facing Action Plan Mansi Stephen, [facility] Note: To achieve SVR as definied by undetectable plasma HCV RNA at least twelve weeks after end of treatment Procedures Procedure Name Priority Date/Time Associated Diagnosis Comments HC HIV SCREEN, 4TH GENERATION Routine 10/01/2020 4:09 PM EDT Chronic hepatitis C without hepatic coma COMPREHENSIVE METABOLIC PANEL Routine 10/01/2020 4:09 PM EDT Chronic hepatitis C without hepatic coma from Last 3 Months or Most Recently Relevant to Health Maintenance Results * HIV Screen, 4th Generation ([facility]/CGP/APD/NLH) (10/01/2020 4:09 PM EDT) Pathologist [facility] HIV Ab/Ag Screen Negative Negative [facility] Comment: This 4th Generation HIV test [...] In Lab Agueda Busch MD CHEMISTRY ORDERABLES [facility] [place] [address] * (ABNORMAL) Comprehensive metabolic panel (non-fasting) (10/01/2020 4:09 PM EDT) [facility] Glucose 89 65 - 199 mg/dL [facility] Comment:Diabetes: >=200 mg/d L plus symptoms Blood Urea Nitrogen 14 10 - 20 mg/dL [facility] Creatinine 0.85 0.80 - 1.50 mg/dL [facility] Sodium 140 135 - 145 mmol/L [facility] Potassium 4.1 3.5 - 5.0 mmol/L [facility] Comment: Please note: ??Patients with WBC >100,000 may have falsely elevated Potassium levels. ??For accurate Potassium quantification in these patients send serum separator tube (gold top) for subsequent determinations. ??Contact the Clinical Chemistry Laboratory if there are any questions. Chloride 102 98 - 107 mmol/L [facility] Carbon Dioxide 26 22 - 31 mmol/L [facility] Anion Gap 12 5 - 15 mmol/L [facility] Calcium 9.4 8.5 - 10.5 mg/dL [facility] Protein, Total 7.6 6.1 - 8.0 gm/dL [facility] Albumin 4.6 3.2 - 5.2 gm/dL [facility] Aspartate Aminotransferase 48(H) 0 - 39 unit/L [facility] Alanine Aminotransferase 62(H) 0 - 55 unit/L [facility] Alkaline Phosphatase 71 40 - 130 unit/L [facility] Bilirubin, Total 0.4 0.2 - 1.3 mg/dL [facility] Est Glomerular Filtration Rate 93 >=60 mL/min/1. 73 m?? [facility] Comment: This patient? s estimated glomerular [...] In Lab Agueda Busch MD CHEMISTRY ORDERABLES [facility] [place] [address] from Last 3 Months or Most Recently Relevant to Health Maintenance Care Teams Pcmh Specialist Relationship Specialty Start Date End Date Vicky Diaz APRN [address] [place] [address] PCP - General Family Medicine 07/28/20
--- OUTSIDE RECORDS SUMMARY | 2024-01-20 16:19 | XMS_ITS | Referral Summary ---
Author Organization [facility] Address [address] [place] [address] Care Team Providers Care Microwave Radio Technician Name Role Phone Unavailable Primary Care Provider [...] Orientation Not on file Plan of Treatment Not on file Procedures Procedure Name Priority Date/Time Associated Diagnosis Comments HCV RNA DETECT QUANT Routine 03/11/2023 9:20 EST from Last 3 Months or Most Recently Relevant to Health Maintenance Results * HCV RNA DETECT QUANT (03/11/2023 9:20 EST) HCV RNA Qualitative Undetected Undetected 03/15/2023 12:13 EST [facility] Blood VENOUS BLOOD / Unknown 03/11/2023 9:20 EST 03/12/2023 17:25 EST Narrative [facility] - 03/15/2023 12:13 EST The quantification range of this assay is 15 IU/mL to 100,000,000 IU/mL. Testing was performed using the Misa HCV test ([employer] with the misa 6800 System. Provider Outr Resulting Lab CHEMISTRY & BLOOD GAS ORDERABLES [facility] [address] [place] [address] from Last 3 Months or Most Recently Relevant to Health Maintenance
--- OUTSIDE RECORDS SUMMARY | 2024-01-20 16:19 | XMS_ITS | Encounter Summary ---
[place] [address] Care Team Providers Care Funeral Home Assistant Name Role Phone Vicky Diaz APRN Primary Care Provider [phone] Encounter Details Date Type Department Care Team (Latest Contact Info) Description 03/08/2023 Travel Social History Tobacco Use Types Packs/Day Years [...] 10:00 AM EST Office Visit Dermatology at [place] [address] [place] [id number] Dom Beebe MD [address] [place] [address] documented as of this encounter Goals Goal Patient Goal Type Associated Problems Recent Progress Patient-Stated? Author [facility] Medication Compliance and Understanding Patient Facing Action Plan No Mansi Sapp, [facility] Note: To achieve SVR as definied by undetectable plasma HCV RNA at least twelve weeks after end of treatment documented as of this encounter Visit Diagnoses Not on filedocumented in this encounter Care Teams Funeral Home Assistant Relationship Specialty Start Date End Date Vicky Diaz APRN [address] [place] [address] PCP - General Family Medicine 07/28/20 documented as of this encounter
--- OUTSIDE RECORDS SUMMARY | 2024-01-20 16:19 | XMS_ITS | Encounter Summary ---
Author Organization [facility] Address [address] [place] [address] Care Team Providers Care Stock Repairer Name Role Phone Unavailable Primary Care Provider Unavailabl e Encounter Details Date Type Department Care Team (Late st Contact Info) Description 01/06/2021 Lab Requisition [facility] Pathology & Laboratory Medicine - [facility] [address] [place] [address] Outr Resulting Lab, Provider Social History Tobacco [...] Procedure Name Priority Date/Time Associated Diagnosis Comments ZZCOVID-19 TEST [facility] LAB PCR Today 01/06/2021 11:20 EDT COVID-19 TESTING Routine 01/06/2021 11:2 0 EDT documented in this encounter Results * COVID-19 TEST [facility] LAB PCR (01/06/2021 11:20 EDT) Swab ENTIRE NASOPHARYNX / Unknown 01/06/2021 11:20 EDT 01/06/2021 21:04 EDT Provider Outr Resulting Lab MICROBIOLOGY - GENERAL ORDERABLES [facility] [address] [place] [address] * COVID-19 TESTING (01/06/2021 11:20 EDT) COVID-19 rt-PCR Result Negative Negative 01/07/2021 1:54 EDT [facility] Comment: This test has not been FDA cleared or approved. This test has been authorized by FDA under an EUA for use by authorized laboratories. This test has been authorized only for detection of nucleic acid from 2019-nCoV, not for any other viruses or pathogens. This test is only authorized for the duration of the declaration that circumstances exist justifying the authorization of emergency use of in vitro diagnostic tests for detection and/or diagnosis of 2019-nCoV under section 564(b)(1) of Act, 21 U.S.C ?? 360bbb-3(b) (1), unless the authorization is terminated or revoked sooner. Negative results do not preclude 2019-nCoV infection and should not be used as the sole basis for treatment or other patient management decisions. Negative results must be combined with clinical observations, patient history, and epidemiological information. Performed on the PillGuardher Fusion instrument Performing Lab [place] [facility] 01/07/2021 1:54 EDT [facility] Swab 01/06/2021 11:2 0 EDT 01/06/2021 21:04 EDT Provider Outr Resulting Lab MICROBIOLOGY - GENERAL ORDERABLES [facility] [address] [place] [address] documented in this encounter Visit Diagnoses Not on filedocumented in this encounter
--- OUTSIDE RECORDS SUMMARY | 2024-01-20 16:19 | XMS_ITS | Encounter Summary ---
Author [place] [address] Care Team Providers Care Journalism Teacher Name Role Phone Vicky Diaz JLOENE Primary Care Provider [phone] [phone] Reason for Visit * Reason Comments Medication Management Patient Education Encounter Details Date Type Department Care Team (Late st Contact Info) Description 10/01/2020 Specialty [place] [id number] Mansi Sapp [facility] Social History Tobacco Use Types Packs/Day Years Used Date Smoking Tobacco: Every Day Smokeless Tobacco: Never Comments:3-4 a day Sex and Gender Information Value Date Recorded Sex Assigned at Not on file Gender Identity Not on file Sexual Orientation Not on file documented as of this encounter Progress Notes * Mansi Sapp [facility] - 10/01/2020 3:51 PM EDT Clinical Management Plan: In-clinic New Start Consult Specialty Pharmacy Consultation; Mansi Sapp [facility] Comprehensive Medication Management (CMM) Markus Rivaselson Diagnosis: HCV Therapy Start Date: TBD Contact in person or via telephone: In person Mr. Markus Gentile is a 60 y.o. (1960) male who was contacted in regard to specialty medication. Spoke with patient regarding Mayvret and Epclusa. A review of the medication therapy was performed. All medication related questions and concerns were addressed. Summary and Recommendations: Mr. Markus Gentile is a 60 y.o. (1960) male who I met with in the clinic regarding potential hepatitis C treatment with Mavyret or Epclusa, depending on insurance approval. During the consult we briefly discussed Mavyret and Epclusa, possible side effects and mitigation strategies, the importance of adherence, the lab schedule throughout treatment, goals of therapy, potential drug-drug interactions and the services that the specialty pharmacy provides. I provided the patient with the specialty pharmacy contact information and handout about our services. He understands that the medication has not yet been prescribed, that additional testing and lab results are needed prior to his provider prescribing the medication, and that there is a prior authorization process that needs to occur prior to us filling the medication. The patient understands that once the medication is approved, the specialty pharmacy will follow up with him accordingly. If the patient is eligible to fill with the [facility] specialty pharmacy, we will contact the patient per the following schedule: Initial pharmacist consult, day 3 follow-up, refill reminder and follow-up 10 days prior to refill, end of treatment follow-up. The patient's best contact number is [phone] and weare able to leave voicemails on this line. The logistics regarding the treatment start date and dispensing are currently being considered as the patient works 6 weeks in [place] then will have 6 weeks back in [place]. His next departure date is October 22 and will be returning to [place] December 06. Immediate action items for the pharmacy team includeworking on the prior authorization once genotype is determined and then finalizing logistics of dispensing. I have no further recommendations to make at this time. Informed patient of specialty pharmacy services: Yes -Patient is aware a licensed pharmacist is available 24 hours a day, 7 days a week to discuss medication-related questions or concerns: Yes -Patient verbalizes understanding of the common side effect profile of their medication. The patient is able to call 911 or seek urgent care if signs/symptoms of allergy or harmful adverse reactions occur: Yes Patient understands no changes to current drug regimen were made at the appointment and that [facility] is[facility] (summary located at top of note) for provider review and follow up. Mansi Sapp RPH 10/01/20 4:01 PM documented in this encounter Plan of Treatment Upcoming Encounters Date Type Department Care Team ([facility] Contact Info) Description 03/09/2024 10:00 AM EST Office Visit Dermatology at [place] [address] [place] [address] Dom Beebe MD [address], [place] [address] documented as of this encounter Goals Goal Patient Goal Type Associated Problems Recent Progress Patient-Stated? Author [facility] Medication Compliance and Understanding Patient Facing Action Plan Mansi Stephen, [facility] Note: To achieve SVR as definied by undetectable plasma HCV RNA at least twelve weeks after end of treatment documented as of this encounter Visit Diagnoses Not on filedocumented in this encounter Care Teams Journalism Teacher Relationship Specialty Start Date End Date Vicky Diaz APRN [address] [place] [address] PCP - General Family Medicine 07/28/20 documented as of this encounter
--- OUTSIDE RECORDS SUMMARY | 2024-01-20 16:19 | XMS_ITS | Encounter Summary ---
Author Organization [facility] Address [address] [place] [address] Care Team Providers Care Utility Person Name Role Phone Unavailable Primary Care Provider Unavailabl e Encounter Details Date Type Department Care Team (Late st Contact Info) Description 07/04/2020 Lab Requisition [facility] Pathology & Laboratory Medicine - [facility] [address] [place] [address] Outr Resulting Lab, Provider Social History Tobacco [...] Associated Diagnosis Comments HCV RNA DETECT QUANT Today 07/04/2020 11:20 EST ACUTE HEPATITIS PROFILE Routine 07/04/2020 11:20 EST HEPATITIS B CORE ANTIBODY, IGM (ANTI-HBC, IGM), SERUM Today 07/04/2020 11:20 EST documented in this encounter Results * HEPATITIS B CORE ANTIBODY, IGM (ANTI-HBC, IGM), SERUM (07/04/2020 11:20 EST) HBc IgM Ab, S Negative Negative 07/08/2020 11:26 EDT [facility] Comment: Test Performed by: [facility] [address] [place] [id number] [employer]illing Machine Operator: Mike Petty M.D. Ph.D.; CLIA# [id number] Blood VENOUS BLOOD / Unknown 07/04/2020 11:20 EST 07/05/2020 10:41 EST Provider Outr Resulting Lab CHEMISTRY & BLOOD GAS ORDERABLES Performing Organization Address City/[facility]/ZIP Co de Phone Number [facility] [address] [place] [address] * (ABNORMAL) HCV RNA DETECT QUANT (07/04/2020 11:20 EST) Pathologist [facility] HCV RNA Qualitative Detected( A) Undetected 07/08/2020 13:52 EDT [facility] HCV RNA Quantitative 347,752(H ) Undetected IU/mL 07/08/2020 13:52 EDT [facility] Blood VENOUS BLOOD / Unknown 07/04/2020 11:20 EST 07/04/2020 20:40 EST Narrative [facility] - 07/08/2020 13:52 EDT The quantification range of this assay is 15 IU/mL to 100,000,000 IU/mL. ??Testing was performed on the [employer] Ampliprep/DOLORES TaqMan HCV v2.0 ([employer] Provider Outr Resulting Lab CHEMISTRY & BLOOD GAS ORDERABLES [facility] [address] [place] [address] * (ABNORMAL) ACUTE HEPATITIS PROFILE (07/04/2020 11:20 EST) Pathologist [facility] Hep B Surface Ag Negative Negative 07/06/19 10:41 EST [facility] Hep C Antibody Reactive(A) Negative 10:41 [facility] Comment: Supplemental testing for HCV RNA is ordered to rule out active HCV infection. Hepatitis A Antibody, IgM Negative Negative 07/05/2020 10:41 [facility] Comment:The results of this assay can be falsely lowered due to the consumption of Biotin. Hepatitis B Core Ab, Total Positive(A) Negative 07/05/2020 10:41 [facility] Comment: A positive result for Hepatitis B Core Antibody (Total) indicates either a remote past infection with Hepatitis B Virus OR a Window period between disappearance of HBsAg and seroconversion to HBsAb. Sample sent to [facility] for Hepatitis B Core IgM to differentiate between acute and past HBV infection. Blood VENOUS BLOOD / Unknown 07/04/2020 11:20 EST 07/04/2020 20:40 EST Provider Outr Resulting Lab CHEMISTRY & BLOOD GAS ORDERABLES [facility] [address] [place] [address] documented in this encounter Visit Diagnoses Not on filedocumented in this encounter
--- OUTSIDE RECORDS SUMMARY | 2024-01-20 16:19 | XMS_ITS | Encounter Summary ---
[place] [address] Care Team Providers Care Antique Furniture Reproducer Name Role Phone Vicky Diaz JOLENE Primary Care Provider [phone] Reason for Visit * Reason Comments Annual Exam Encounter Details Date Type Department Care Team (Late st Contact Info) Description 01/15/2022 8:45 AM EDT Office Visit Dermatology at [place] [address] [place] [id number] Dom Beebe MD [address] [facility], [place] [address] History of SCC (squamous cell carcinoma) of [...] Progress Notes * Dom Beebe MD - 01/15/2022 8:45 AM EDT Problem: 1. Annual skin checkup 2. History of SCCA's dorsal forearms treatment 2013 3. 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 He has been doing well. Physical examination reveals a pleasant 61-year-old gentleman who has actinic keratoses on the forehead primarily on the right forehead and also 1 on his right mid cheek. He has 2 on the vertex. There is no evidence of any malignant lesions on careful examination of the scalp the face the neck the chest back hands on forearms thighs and calves. Assessment plan: Actinic keratoses scalp and facial [address] 2 x 2 per each of 6 sites 2. Patient was reassured about his benign skin examination 3. Return to clinic in a year for repeat check. History of SCCA and dorsal forearms/history of suspected malignant melanoma left dorsal foot 1. No evidence of recurrence 2. No evidence of any new lesions of concern. CC: Vicky Diaz PROGRAMS DIRECTOR.. ?? documented in this encounter Plan of Treatment Upcoming Encounters Date Type Department Care Team (Late st Contact Info) Description 03/09/2024 10:00 AM EST Office Visit Dermatology at [place] [address] [place] [address] Dom Beebe MD [address] [facility], [facility] [place] [address] documented as of this encounter Goals Goal Patient Goal Type Associated Problems Recent Progress Patient-Stated? Author DH Home Medication Compliance and Understanding Patient Facing Action Plan Mansi Stephen, [facility] Note: To achieve SVR as definied by undetectable plasma HCV RNA at least twelve weeks after end of treatment documented as of this encounter Visit Diagnoses Diagnosis History of SCC (squamous cell carcinoma) of skin Personal history of other malignant neoplasm of skin [place] (actinic keratosis) Actinic keratosis Nevus Benign neoplasm of skin, site unspecified documented in this encounter Care Teams Antique Furniture Reproducer Relationship Specialty Start Date End Date Vicky Diaz APRN [address] [place] [address] PCP - General Family Medicine 07/28/20 documented as of this encounter
--- OUTSIDE RECORDS SUMMARY | 2024-01-20 16:19 | XMS_ITS | Encounter Summary ---
Author Organization [facility] [place] [address] Care Team Providers Care Dressing Machine Operator Name Role Phone Vicky Diaz APRN Primary Care Provider [phone] Reason for Visit * Reason Comments Skin Check * Consultation (Routine) - Closed Specialty Diagnoses / Procedures Referred By Jun sanabria Referred To Contact Dermatology Diagnoses Personal history of other malignant neoplasm of skin HX of Skin Cancer; New Patient-Notes Received Procedures Consult Vicky Diaz APRN [address] [place] [address] Dom Beebe MD [address] [place] [address], [facility] [place] [address] Referral ID Status Reason Start Date Expiration Date V isits Requested Visits Authorized [id number] Closed Consult, Test & Treat PCP Updated and/or Approved 07/04/2020 07/04/2021 6 6 Encounter Details Date Type Department Care Team (Late st Contact Info) Description 12/23/2020 3:15 PM EDT Office Visit Dermatology at [address] [address] Dom Beebe MD [address] [place] [address], [facility] [place] [address] History of SCC (squamous cell carcinoma) of [...] Progress Notes * Dom Beebe MD - 12/23/2020 3:15 PM EDT Problem: 1. New patient initial visit, skin checkup 2. History of SCCA's dorsal forearms treatment [place] 2013 3. History of suspected malignant melanoma left dorsal foot 4. 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 He does use sunscreen when he is out side and tries to protect himself. Prior to this job he worked in the [employer] in [place], based out of [place]. He is now living with his in [place]. When surfing he will use SPF 100 sunscreen otherwise he uses SPF 50 sunscreen. Physical examination reveals a pleasant 60-year-old gentleman who is actinic's on the left and right cheeks. He is moderately tanned. Has type III Alejandra pigmentation. He does have benign examination of the scalp the face the neck the chest the back the hands the arms of forearms the thighs and the calves. He has well-healed scars in the dorsal forearms 1 left and 1 right, and there is no efra dence of recurrent pigmentation of the left dorsal foot. Assessment plan: Actinic keratosis facial 1. LN 2 x 2 applied each of 5 sites History of apparent melanoma and of nonmelanoma skin cancers 1. No evidence of recurrence or new sites seen today 2. Continue sun avoidance precautions. 3. Return to clinic in a year for recheck return reminder 1 year. CC: Vicky Diaz APRN documented in this encounter Plan of Treatment Upcoming Encounters Date Type Department Care Team (Late st Contact Info) Description 03/09/2024 10:00 AM EST Office Visit Dermatology at [address] [phone] Dom Beebe MD [address] [place] [address] RD, [place] [address] documented as of this encounter Goals Goal Patient Goal Type Associated Problems Recent Progress Patient-Stated? Author DH Home Medication Compliance and Understanding Patient Facing Action Plan Mansi Stephen, [facility] Note: To achieve SVR as definied by undetectable plasma HCV RNA at least twelve weeks after end of treatment documented as of this encounter Visit Diagnoses Diagnosis History of SCC (squamous cell carcinoma) of skin Personal history of other malignant neoplasm of skin [place] (actinic keratosis) Actinic keratosis Nevus Benign neoplasm of skin, site unspecified documented in this encounter Care Teams Dressing Machine Operator Relationship Specialty Start Date End Date Vicky Diaz APRN [address] [place] [address] PCP - General Family Medicine 07/28/20 documented as of this encounter
[2024-01-20 16:26] LABS: ALT 22 U/L (16-63); AST 18 U/L (15-37); Albumin 4.1 g/dL (3.4-5.0); Alkaline Phosphatase 77 U/L (46-116); Anion Gap 5.3 mmol/L (3-11); BUN 15 mg/dL (7-18); Bilirubin, Total 0.65 mg/dL (0.2-1.0); CO2 30.7 mmol/L (21.0-32.0); CREATININE 1.1 mg/dL (0.70-1.30); Calcium 9.6 mg/dL (8.5-10.1); Chloride 103 mmol/L (98-107); Cholesterol 170 mg/dL (<200); Glucose 87 mg/dL (74-106); HDL Cholesterol 73 mg/dL (40-60); Potassium 4.7 mmol/L (3.5-5.1); Sodium 139 mmol/L (136-145); Total Protein 7.5 g/dL (6.4-8.2); Vitamin B12 288 pg/mL (193-986)
[2024-01-20 16:27] LABS: Hemoglobin A1C 5.4 % (<5.7)
[2024-01-20 17:46] LABS: Calculated LDL 87 mg/dL (<100); TSH (W/Ref FT4) 2.76 uIU/mL (0.36-3.74); Triglyceride 54 mg/dL (<150)
== END 2024-01-20 16:13 | disposition home or self-care (01) ==
LOC: NCHCN 16:12
PROVIDERS: PCP Nurse Practitioner Family; Visit Provider Nurse Practitioner Family
DX: Z00.00 Encounter for general adult medical examination without abnormal findings (principal)
CPT/HCPCS: 80053; 80061; 82607; 83036; 84443; 85025

== ENCOUNTER 2024-11-09 09:13 | Outpatient (REF) | payer MEDICARE, SELFPAY ==
[2024-11-09 18:13] LABS: Anion Gap 7.5 mmol/L (3-11); BUN 18 mg/dL (7-18); CO2 29.5 mmol/L (21.0-32.0); Calcium 9.3 mg/dL (8.5-10.1); Chloride 103 mmol/L (98-107); Estimated GFR 94.19 (mL/min/1.73m2); Glucose 66 mg/dL (74-106); Potassium 4.9 mmol/L (3.5-5.1); Sodium 140 mmol/L (136-145)
[2024-11-09 22:37] LABS: PSA, Screening 0.4 ng/mL (<=4.5)
== END 2024-11-09 09:14 | disposition home or self-care (01) ==
LOC: NCHCN 09:13
PROVIDERS: PCP Nurse Practitioner Family; Visit Provider Nurse Practitioner Family
DX: Z12.5 Encounter for screening for malignant neoplasm of prostate (principal); Z00.00 Encounter for general adult medical examination without abnormal findings
CPT/HCPCS: 80048; 84153

== ENCOUNTER 2024-11-17 00:24 | Outpatient (CLI) | payer MEDICARE, SELFPAY ==
--- NOTE | 2024-11-17 | DI.US_ITS ---
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 DATA REPOSITORY:
== END 2024-11-17 00:44 ==
LOC: DI 00:24
PROVIDERS: PCP Nurse Practitioner Family; Visit Provider Nurse Practitioner Family
DX: I99.9 Unspecified disorder of circulatory system (principal); F17.210 Nicotine dependence, cigarettes, uncomplicated
CPT/HCPCS: 76706